=== PATIENT | female | born 1965 | race Caucasian/White ===

== ENCOUNTER 2017-12-08 16:09 | Emergency (ER) | payer OTHER ==
--- NOTE | 2017-12-08 16:33 | PDOC ---
Rapid Medical Evaluation Time Seen by Provider: 12/08/17 16:30 Medical Evaluation: Allergies Allergy/AdvReac Type Severity Reaction Status Date / Time No Known Allergies Allergy Verified 02/18/16 16:38 12/08/17 16:30 I have performed a brief in-person evaluation of this patient. The patient presents with a chief complaint of: pain to R shoulder x 1 month, denies chest pain, sob Pertinent physical exam findings: well appearing, full ROM I have ordered the following: right shoulder xray The patient will proceed to the ED for further evaluation. Discharge Disposition - Diagnosis Right shoulder pain - Referrals - Patient Instructions - Post Discharge Activity
[2017-12-08 16:34] VITALS: BP 124/79; PULSE 82; TEMP 98.3; BMI 26.4
[2017-12-08] MEDS ORDERED: KETOROLAC TROMETHAMINE 30 MG/1 ML VIAL IM ONE (17:14)
[2017-12-08] MEDS ORDERED: KETOROLAC TROMETHAMINE 30 MG/1 ML VIAL ONE (17:19)
--- NOTE | 2017-12-08 17:20 | PDOC ---
History of Present Illness - General Chief Complaint: Pain Stated Complaint: ARM PAIN Time Seen by Provider: 12/08/17 16:30 History Source: Patient Exam Limitations: No Limitations - History of Present Illness Initial Comments: 12/08/17 17:28 52-year-old woman with history of diabetes and bipolar disorder presents emergency Department with atraumatic right shoulder pain for one month. Patient states that with the bed 1 evening approximately one month ago without any pain and woke up the next morning having shoulder pain to the anterior side. Patient denies any trauma. Patient states she has been taking [id number] medications with minimal to no relief of pain. Patient states her pain gets worse when she raises her right arm above the level of the shoulder and when she has inward rotation of her shoulder. Patient denies any fevers, chills, shortness of breath, numbness, tingling or weakness affected extremity. Past History - Past Medical History Allergies/Adverse Reactions: Allergies Allergy/AdvReac Type Severity Reaction Status Date / Time No Known Allergies Allergy Verified 12/08/17 16:30 Home Medications: Ambulatory Orders Atorvastatin Ca [Lipitor] 40 mg PO HS 02/18/16 Divalproex *ER* [Depakote *ER* -] 500 mg PO BID 02/18/16 Glyburide [Diabeta] 5 mg PO DAILY 02/18/16 Insulin Glargine,Hum.rec.anlog [Lantus Solostar PEN -] 70 units SQ ASDIR Metformin HCl [Metformin HCl ER] 500 mg PO BID 02/18/16 Aspirin [ASA -] 81 mg PO DAILY tab.chew 02/19/16 Divalproex *ER* [Depakote *ER* -] 500 mg PO BID tablet.sa 02/19/16 Metoprolol Succinate [Toprol XL -] 25 mg PO DAILY #30 tab.sr.24h 02/19/16 COPD: No Diabetes: Yes Hypercholesterolemia: Yes - Suicide/Smoking/Psychosocial Hx Smoking History: Never smoked Have you smoked in the past 12 months: No Information on smoking cessation initiated: No Hx Alcohol Use: No Drug/Substance Use Hx: No Substance Use Type: None Hx Substance Use Treatment: No Review of Systems - Review of Systems Able to Perform ROS?: Yes Is the patient limited American proficient: No Constitutional: No: Symptoms Reported HEENTM: No: Symptoms Reported Respiratory: No: Symptoms reported Cardiac (ROS): No: Symptoms Reported ABD/GI: No: Symptoms Reported : No: Symptoms Reported Musculoskeletal: Yes: See HPI Integumentary: No: Symptoms Reported Neurological: No: Symptoms reported *Physical Exam - Vital Signs Last Vital Signs Temp Pulse Resp BP Pulse Ox 98.3 F 82 18 124/79 100 12/08/17 16:31 12/08/17 16:31 12/08/17 16:31 12/08/17 16:31 12/08/17 16:31 - Physical Exam General Appearance: Yes: Appropriately Dressed. No: Apparent Distress HEENT: positive: Normal ENT Inspection Neck: positive: Trachea midline, Supple Respiratory/Chest: positive: Lungs Clear, Normal Breath Sounds. negative: Respiratory Distress, Accessory Muscle Use Cardiovascular: positive: Regular Rhythm, Regular Rate. negative: Murmur Gastrointestinal/Abdominal: positive: Normal Bowel Sounds, Soft. negative: Tender Musculoskeletal: positive: Normal Inspection. negative: CVA Tenderness Extremity: positive: Normal Inspection, Normal Range of Motion, Other ( Increased pain with abduction greater than 90 and inward rotation of the shoulder) Integumentary: positive: Normal Color, Dry, Warm Neurologic: positive: Alert, Normal Response Medical Decision Making - Medical Decision Making 12/08/17 17:21 A/P: 52-year-old female without significant past medical history with atraumatic right shoulder pain for one month Active range of motion restricted with adduction greater than 90 and inward rotation of the shoulder No bony tenderness upon palpation Full sensation to all aspects of right upper arm No palpable muscle spasms Terminal Gauger strength 5/5 X-rays perform a rapid medical evaluation as read by me: No fractures or dislocations noted. Acromioclavicular joint is well approximated. X-ray findings discussed with patient and significant other. With. Referral given for Dr. Jung for continued evaluation of shoulder pain is patient may need MRI for further evaluation. Patient verbalizes understanding of discharge instructions. *DC/Admit/Observation/Transfer Diagnosis at time of Disposition: Right shoulder pain Qualifiers: Chronicity: unspecified Qualified Code(s): M25.511 - Pain in right shoulder - Discharge Dispostion Disposition: HOME Condition at time of disposition: Stable Admit: No - Referrals Referrals: Aidee Roe MD [Primary Care Provider] - Richard Jung MD [Staff Physician] - - Patient Instructions Printed Discharge Instructions: Shoulder Tendinopathy Additional Instructions: Take Aleve as needed for pain. Follow manufacturers instructions for appropriate dosage. Apply ice for 20 minutes and removed for at least 20 minutes before reapplying the ice. You've been given the number for an orthopedist. If symptoms do not resolve within the next 7 days call the orthopedist for further evaluation. Return to emergency department for any other concerns. Thank you very much for choosing us to provide your emergent healthcare needs. Print Language: KYRGYZ - Post Discharge Activity
== END 2017-12-08 17:32 | disposition home or self-care (01) ==
LOC: JERFT 16:09
PROC: 3E0233Z Introduction of Anti-inflammatory into Muscle, Percutaneous Approach (ICD-10-PCS; principal; 2017-12-08)
DX: M25.511 Pain in right shoulder (principal); F31.9 Bipolar disorder, unspecified; E11.9 Type 2 diabetes mellitus without complications; E78.00 Pure hypercholesterolemia, unspecified; Z79.4 Long term (current) use of insulin
CPT/HCPCS: 73030-TC-RT-FY; 99281-25

== ENCOUNTER 2018-05-14 11:56 | Emergency (ER) | payer SELFPAY ==
[2018-05-14 12:15] VITALS: BP 124/76; PULSE 87; TEMP 98; BMI 25.7
[2018-05-14] MEDS ORDERED: diphenhydrAMINE HCL 25 MG CAPSULE (FP) PO ONE ×2 (13:25→13:44)
[2018-05-14] MEDS ORDERED: predniSONE 20 MG TABLET (UD) PO ONE (13:25)
--- NOTE | 2018-05-14 13:25 | PDOC ---
Attending Attestation - Resident Resident Name: HarryCash barron - ED Attending Attestation I have performed the following: I have examined & evaluated the patient, The case was reviewed & discussed with the resident, I agree w/resident's findings & plan, Exceptions are as noted - HPI HPI: 05/14/18 13:14 53y F presenting with b/l eye edema. Patient states that she woke up on Monday morning and noticed some eye swelling but did not have any itching, pain, difficult breathing, swelling anywhere else on her face. Patient notes that the swelling had increased on Monday any other symptoms. Do not resolve but today so they came to the ER for evaluation. Denies any new medications, lotions, soap, known ALLERGIES. She denies any shortness of breath difficult swallowing, rashes or itchiness, pain anywhere including chest pain, abdominal pain, eye pain, vision changes, pain with eye movement. - Physicial Exam PE: 05/14/18 13:39 GENERAL: The patient is awake, alert, and fully oriented, Nontoxic - in no acute distress. HEAD: Normocephalic, atraumatic. EYES: periorbital edema, non tender, not tense, non erythemdous, extraocular movements intact, sclera anicteric, conjunctiva clear. ENT: Normal voice, Moist mucous membranes, posterior pharynx patent without SKIN: Warm, Dry, normal turgor, - Medical Decision Making 05/14/18 13:39 DDX: Periorbital edema without signs of infection, no signs of orbital cellulitis Possible ALLERGIC reaction however localized only to the eyes without other signs of ALLERGY Treat the patient with Benadryl, prednisone Will have the patient follow-up with PMD and ALLERGY Return precautions were discussed
--- NOTE | 2018-05-14 13:30 | PDOC ---
History of Present Illness - General Chief Complaint: Allergic Reaction Stated Complaint: EYE PROBLEM, POSSIBLE ALLERGIC REACTION Time Seen by Provider: 05/14/18 13:00 - History of Present Illness Initial Comments: The patient is a 53F w/ a history of T2DM who presents with 3 days of b/l periorbital swelling. She states that the swelling started Monday, got progressively worse Monday, and has stayed since that time. The patient denies any associated symptoms, including pain, fevers, change in vision, difficulty swallowing, or difficulty breathing. She denies any new foods, exposures, creams , lotions, or being bit by anything. She denies every having had this before. She only takes metformin daily. She denies allergies to food or medications. 05/14/18 13:45 Past History - Past Medical History Allergies/Adverse Reactions: Allergies Allergy/AdvReac Type Severity Reaction Status Date / Time No Known Allergies Allergy Verified 05/14/18 12:12 Home Medications: Ambulatory Orders Metformin HCl [Metformin HCl ER] 1,000 mg PO BID 05/14/18 Prednisone [Deltasone] 40 mg PO DAILY 4 Days #8 tablet 05/14/18 COPD: No Diabetes: Yes Hypercholesterolemia: Yes - Surgical History Cholecystectomy: Yes - Immunization History Immunization Up to Date: Yes - Suicide/Smoking/Psychosocial Hx Smoking History: Never smoked Have you smoked in the past 12 months: No Hx Alcohol Use: No Drug/Substance Use Hx: No Substance Use Type: None Hx Substance Use Treatment: No Review of Systems - Review of Systems Able to Perform ROS?: Yes Comments:: GENERAL/CONSTITUTIONAL: No fever or chills. No weakness HEAD, EYES, EARS, NOSE AND THROAT: +eye swelling. No change in vision. No ear pain or discharge. No sore throat CARDIOVASCULAR: No chest pain or shortness of breath RESPIRATORY: No cough, wheezing, or hemoptysis GASTROINTESTINAL: No nausea, vomiting, diarrhea or constipation GENITOURINARY: No dysuria, frequency, or change in urination MUSCULOSKELETAL: No joint or muscle swelling or pain. No neck or back pain SKIN: +periortibal swelling NEUROLOGIC: No headache, vertigo, loss of consciousness, or change in strength/ sensation ENDOCRINE: No increased thirst. No abnormal weight change HEMATOLOGIC/LYMPHATIC: No anemia, easy bleeding, or history of blood clots ALLERGIC/IMMUNOLOGIC: No hives or rash 05/14/18 13:47 *Physical Exam - Vital Signs Last Vital Signs Temp Pulse Resp BP Pulse Ox 98.0 F 87 18 124/76 98 05/14/18 12:00 05/14/18 12:00 05/14/18 12:00 05/14/18 12:00 05/14/18 12:00 - Physical Exam Comments: GENERAL: Awake, alert, and fully oriented, in no acute distress HEAD: No signs of trauma, normocephalic, atraumatic EYES: b/l periorbital edema w/o erythema or TTP; PERRL, EOMI, sclera anicteric, conjunctiva clear ENT: Hearing grossly normal, nares patent, oropharynx clear without exudates. Moist mucosa NECK: Normal ROM, supple LUNGS: No distress, speaks full sentences, clear to auscultation bilaterally HEART:Regular rate and rhythm, normal S1 and S2, no murmurs appreciated, peripheral pulses normal and equal bilaterally ABDOMEN: Soft, nontender, normoactive bowel sounds. No guarding, no rebound EXTREMITIES : Normal inspection, Normal range of motion, no edema. No clubbing or cyanosis NEUROLOGICAL: Cranial nerves II through XII grossly intact. Normal speech, normal gait, no focal sensorimotor deficits SKIN: +periorbital swelling; no rash; 05/14/18 13:33 Medical Decision Making - Medical Decision Making The patient is a 53F w/ a history of T2DM who presents with 3d of periorbital swelling Ddx: angioedema v allergic reaction Patient with no reported exposures No signs of infection No signs of vision loss No difficulty breathing or oropharyngeal swelling Will give 50mg Benadryl PO once and Prednisone 60mg PO once Rx Prednisone 40mg PO daily for 4 days Plan for DC w/ PCP f/u Plan discussed with patient and return precautions given. Patient verbalizes understanding and is in agreement. Dispo: Home 05/14/18 13:48 *DC/Admit/Observation/Transfer Diagnosis at time of Disposition: Periorbital edema - Discharge Dispostion Disposition: HOME Condition at time of disposition: Stable Decision to Admit order: No - Prescriptions Prescriptions: Prednisone [Deltasone] 40 mg PO DAILY 4 Days #8 tablet - Referrals Referrals: Aidee Roe MD [Primary Care Provider] - - Patient Instructions Printed Discharge Instructions: DI for General Allergic Reactions Additional Instructions: You were seen today for periorbital edema (edema around your eyes). You were given benadryl and a steroid (prednisone) while here. You were also sent a script of Prednisone 40mg daily for 4 days to the pharmacy that you specified. Please review the handout provided at discharge. Please follow up with your primary care provider within the next 1-3 days. Return to the Emergency Room if your symptoms worsen, or if you develop swelling in your mouth, of the tongue, or trouble breathing, as well as any new/concerning symptoms. - Post Discharge Activity
[2018-05-14] MEDS ORDERED: predniSONE 20 MG TABLET (UD) ONE (13:44)
== END 2018-05-14 13:50 | disposition home or self-care (01) ==
LOC: JER 11:56
DX: H05.223 Edema of bilateral orbit (principal); E11.9 Type 2 diabetes mellitus without complications; Z79.84 Long term (current) use of oral hypoglycemic drugs; E78.00 Pure hypercholesterolemia, unspecified
CPT/HCPCS: 99281-25

== ENCOUNTER 2018-05-30 13:22 | Inpatient (IN) | payer SELFPAY ==
[2018-05-30] MEDS ORDERED: SODIUM CHLORIDE 1,000 ML IV STA ×2 (15:17→17:07)
[2018-05-30] MEDS ORDERED: CLINDAMYCIN 600MG PREMIX IVPB 600 MG/50 ML BAG IVPB ONE ×2 (15:18→15:46)
--- NOTE | 2018-05-30 16:06 | PDOC ---
History of Present Illness - General Chief Complaint: Wound Stated Complaint: Vaginal Sxs Time Seen by Provider: 05/30/18 13:52 History Source: Patient - History of Present Illness Timing/Duration: reports: other (4 days) Past History - Past Medical History Allergies/Adverse Reactions: Allergies Allergy/AdvReac Type Severity Reaction Status Date / Time No Known Allergies Allergy Verified 05/14/18 12:12 Home Medications: Ambulatory Orders Metformin HCl [Metformin HCl ER] 1,000 mg PO BID 05/14/18 COPD: No Diabetes: Yes Hypercholesterolemia: Yes - Surgical History Cholecystectomy: Yes - Immunization History Immunization Up to Date: Yes - Suicide/Smoking/Psychosocial Hx Smoking History: Unknown if ever smoked Have you smoked in the past 12 months: No Hx Alcohol Use: No Drug/Substance Use Hx: No Substance Use Type: None Hx Substance Use Treatment: No Review of Systems - Review of Systems Constitutional: No: Chills, Fever : No: Dysuria *Physical Exam - Vital Signs Last Vital Signs Temp Pulse Resp BP Pulse Ox 98.3 F 98 H 20 151/87 99 05/30/18 13:26 05/30/18 13:26 05/30/18 13:26 05/30/18 13:26 05/30/18 13:26 - Physical Exam General Appearance: Yes: Appropriately Dressed. No: Apparent Distress HEENT: positive: Normal Voice Neck: positive: Supple Respiratory/Chest: negative: Respiratory Distress Female Pelvic Exam: positive: other (copious amount of thick white discharge observed at intraoitus and along labia minora w/ siginificant, fluctuant, diffuse swelling of L labia majora) Gastrointestinal/Abdominal: positive: Soft. negative: Tender Integumentary: positive: Dry, Warm Neurologic: positive: Fully Oriented, Alert, Normal Mood/Affect ED Treatment Course - LABORATORY CBC & Chemistry Diagram: 05/30/18 15:40 05/30/18 15:40 - Medications Given in the ED: ED Medications Discontinued Medications Generic Name Dose Route Start Last Admin Trade Name Freq PRN Reason Stop Dose Admin Clindamycin Phosphate 600 mg in 50 mls @ 100 mls/hr 05/30/18 15:18 05/30/18 15:59 Cleocin 600 Mg Premix Ivpb - IVPB 05/30/18 15:47 100 mls/hr ONCE ONE Administration Protocol Medical Decision Making - Medical Decision Making 05/30/18 16:48 53-year-old female, history of IDDM, here with pain/swelling to genitalia for 4 days. No trauma. No vaginal discharge, fever or chills. No history of similar episode See exam Complicated labial abscess m/l 2/2 poorly controlled DM -pain control -IV abx -labs -GENERAL STORE MANAGER c/s -admit 05/30/18 17:57 BG of 599, no gap. IVF and insulin in progress. GENERAL STORE MANAGER now at bedside. Wound cx sent. Pt admitted to Obs as d/w hospitalist *DC/Admit/Observation/Transfer Diagnosis at time of Disposition: Abscess of left genital labia, Hyperglycemia - Discharge Dispostion Condition at time of disposition: Fair Decision to Admit order: Yes - Referrals Referrals: Aidee Roe MD [Primary Care Provider] - - Patient Instructions - Post Discharge Activity
[2018-05-30 16:10] LABS: BASO % 1.1 % (0-2.0); EOS % 0.7 % (0-4.5); HEMATOCRIT 37.4 % (32.4-45.2); HEMOGLOBIN 12.5 GM/dL (10.7-15.3); LYMPH % 21.4 % (8-40); MCH 28.8 pg (25.7-33.7); MCHC 33.4 g/dl (32.0-36.0); MEAN CELL VOLUME 86.2 fl (80-96); MEAN PLT VOLUME 10.1 fl (7.5-11.1); MONO % 9.8 % (3.8-10.2); PLATELET COUNT 246 K/MM3 (134-434); RBC 4.34 M/mm3 (3.60-5.2); RDW 12.5 % (11.6-15.6); WHITE BLOOD COUNT 10.1 K/mm3 (4.0-10.0)
[2018-05-30 16:41] LABS: INR 0.97 (0.83-1.09); PROTHROMBIN TIME (PATIENT) 11.5 SEC (9.7-13.0)
[2018-05-30 16:44] LABS: ALBUMIN 3.3 g/dl (3.4-5.0); ALK PHOS 155 U/L (45-117); ANION GAP 10 MMOL/L (8-16); BILIRUBIN,TOTAL 0.2 mg/dL (0.2-1); BLOOD UREA NITROGEN 17 mg/dL (7-18); CALCIUM 9.5 mg/dL (8.5-10.1); CHLORIDE 92 mmol/L (98-107); CO2 27 mmol/L (21-32); CREATININE 0.8 mg/dL (0.55-1.3); POTASSIUM 4.2 mmol/L (3.5-5.1); SGOT/AST 8 U/L (15-37); SGPT/ALT 13 U/L (13-61); SODIUM 129 mmol/L (136-145); TOT PROT 7.5 g/dl (6.4-8.2)
[2018-05-30 16:52] LABS: GLUCOSE,RANDOM 599 mg/dL (74-106)
[2018-05-30] MEDS: INSULIN REGULAR HUMAN 100 UNITS/ML *VIAL IVPUSH ONE ×2 (17:04→17:10)
[2018-05-30] MEDS ORDERED: INSULIN (NOVOLOG) ASPART 100 UNITS/ML 10ML VIAL ONE (17:09)
[2018-05-30] MEDS ORDERED: LIDOCAINE HCL 1%, 10 MG/ML (20ML VIAL) ONE (17:39)
--- NOTE | 2018-05-30 18:14 | CONSULT ---
Consult Consult Specialty:: PROJECT DESIGN ENGINEER Reason for Consultation:: Labial abscess - History of Present Illness Chief Complaint: L labial swelling History of Present Illness: 53yo poorly controlled DM2 here with 4 days of L labial swelling. Very painful. Difficulty walking/sitting. Uses razors. No fevers/chills. Never had this before. No allergies. - History Source History Provided By: Patient - Past Medical History Endocrine: Yes: Diabetes Mellitus - Past Surgical History Past Surgical History: Yes: Cholecystectomy - Alcohol/Substance Use Hx Alcohol Use: No History of Substance Use: reports: None - Smoking History Smoking history: Never smoked Have you smoked in the past 12 months: No - Social History Usual Living Arrangement: With Spouse ADL: Independent Home Medications - Allergies Allergies/Adverse Reactions: Allergies Allergy/AdvReac Type Severity Reaction Status Date / Time No Known Allergies Allergy Verified 05/14/18 12:12 - Home Medications Home Medications: Ambulatory Orders Metformin HCl [Metformin HCl ER] 1,000 mg PO BID 05/14/18 Review of Systems - Review of Systems Gastrointestinal: denies: No Symptoms, Abdominal Pain, Bloating, Constipation, Diarrhea, Dysphagia, Indigestion, Melena, Nausea, Rectal Bleeding, Vomiting, Vomiting Blood, Other Genitourinary: denies: No Symptoms, Burning, Discharge, Dysuria, Flank Pain, Frequency, Hematuria, Incontinence, Lesions, Menses, Pain, Testicular Mass, Testicular Pain, Testicular Swelling, Urgency, Vaginal Bleeding, Other Integumentary: reports: Lesions, Lump Physical Exam Vital Signs: Vital Signs Temperature 98.3 F 05/30/18 13:26 Pulse Rate 98 H 05/30/18 13:26 Respiratory Rate 20 05/30/18 13:26 Blood Pressure 151/87 05/30/18 13:26 O2 Sat by Pulse Oximetry (%) 99 05/30/18 13:26 Constitutional: Yes: Calm (Normal R labia, Swollen and indurated L labia majora. no vesicles. One pustule.) Labs: CBC, BMP 05/30/18 15:40 05/30/18 15:40 Assessment/Plan 53yo here with L labia mess Now s/p bedside I&D with copious draiange Clinda IV given by ER, would continue po course x 7 days Culture taken Hygeine dsicussed Admitted to medicine service; will see in AM again Gloria Hendrickson MD
[2018-05-30 18:59] LABS: URINE APPEARANCE SLCLOUDY; URINE BILIRUBIN NEGATIVE (<2.0 mg/dL); URINE COLOR STRAW; URINE GLUCOSE (UA) 3+ (NEGATIVE); URINE KETONE TRACE (NEGATIVE); URINE LEUK ESTERASE 3+ (NEGATIVE); URINE NITRITE NEGATIVE (NEGATIVE); URINE PROTEIN NEGATIVE (NEGATIVE); URINE UROBILINOGEN NEGATIVE mg/dL (0.2-1.0)
[2018-05-30 19:29] LABS: EPI CELLS RARE /HPF (FEW); URINE MUCUS RARE; YEAST RARE
[2018-05-30] MEDS ORDERED: MIDAZOLAM 100 MG in SODIUM CHLORIDE 100 ML IVPB SCH (20:00)
[2018-05-30] MEDS ORDERED: ENOXAPARIN NA (PORCINE) 40 MG/0.4 ML DISP.SYRIN SQ SCH (20:45)
--- NOTE | 2018-05-30 20:55 | HP ---
CHIEF COMPLAINT: vaginal infection on L labia x5 days PCP: HISTORY OF PRESENT ILLNESS: 53F w/ pmhx of DM, HLD, Depression presents with 5 day history of vaginal pain due to an infection on her L labia. Pt says she has never had this before. She states that she noticed this abscess about 5 days ago after which she was given "Ampicillin 500 mg" by her PCP, but it did not get better. She uses a razor to shave her vaginal area, but denies any cuts or rashes in the region. She denies any history of sexually transmitted diseases. She also reports that she is currently sexually active with her and does not use any protection. Pt admits that she gets frequent UTIs. She denies kumar/d, f/c, n/v, chest pain, sob, abd pain, urinary/bowel symptoms, blood in urine or stool. Of note, she states her maternal grandmother had "vaginal cancer". ER course was notable for: (1) WBC 10.1, T 98.6, Na 129 (Corrected Na 138), Glu 599; U/A showed 3+ LE, 2+ Bl, 3+ LE, 60 WBCs, 39 RBCs (2) I&D done by SIGN LETTERER at bedside with copious drainage, Clindamycin 600 mg IVPB given, IV Insulin 10U, wound cx done (3) Recent Travel: Denies PAST MEDICAL HISTORY: DM HLD Depression PAST SURGICAL HISTORY: C-sections x3 Cholecystectomy Social History: Smoking: Denies Alcohol: Denies Drugs: Denies Family History: Maternal grandmother: vaginal cx Mother: HTN, DM Father: HTN, DM Allergies No Known Allergies Allergy (Verified 05/14/18 12:12) HOME MEDICATIONS: Home Medications Medication Instructions Recorded Metformin HCl [Metformin HCl ER] 1,000 mg PO BID 05/14/18 REVIEW OF SYSTEMS As per HPI PHYSICAL EXAMINATION Vital Signs - 24 hr 05/30/18 05/30/18 13:26 18:51 Temperature 98.3 F 98.6 F Pulse Rate 98 H Pulse Rate [ 97 H Left] Respiratory 20 18 Rate Blood Pressure 151/87 Blood Pressure 155/91 [Left Arm] O2 Sat by Pulse 99 100 Oximetry (%) GENERAL: AAOx3. NAD. Resting comfortably. HEENT: AT/NC. EOMI. CHAR. Moist mucus membranes. NECK: Supple, no LAD/JVD. LUNGS: CTA B/L. No w/r/r noted. Symmetric chest rise. No accessory muscle use. HEART: RRR. Normal S1, S2. No murmurs noted. ABDOMEN: Soft, ND/NT +BS in all 4 Q's. No masses or bruits noted. : Tender L labial abscess, indurated, erythematous. MUSCULOSKELETAL: No pedal edema. 5/5 muscle strength in b/l u/l extremities. NEUROLOGICAL: Normal speech. CN II-XII intact. B/l sensation intact. PSYCHIATRIC: Cooperative. Good eye contact. Appropriate mood and affect. SKIN: Warm, dry, normal turgor, normal capillary refill. CBC, BMP 05/30/18 15:40 05/30/18 15:40 Abnormal Lab Results 05/30/18 05/30/18 05/30/18 15:40 15:40 15:59 WBC 10.1 H Sodium 129 L Chloride 92 L Random Glucose 599 H* AST 8 L Alkaline Phosphatase 155 H Albumin 3.3 L Urine Glucose (UA) Urine Ketones Urine Blood Ur Leukocyte Esterase Acetone, Qual Negative L 05/30/18 18:52 WBC Sodium Chloride Random Glucose AST Alkaline Phosphatase Albumin Urine Glucose (UA) 3+ H Urine Ketones Trace H Urine Blood 2+ H Ur Leukocyte Esterase 3+ H Acetone, Qual ASSESSMENT/PLAN: 53F w/ pmhx of DM, HLD, Depression presents with 5 day history of vaginal pain due to an infection on her L labia. #Left labial abscess; Pt underwent I&D at bedside by SIGN LETTERER. Due to pt failed outpatient antibiotic therapy, there is a concern for MRSA as cause of infection. -Given Clindamycin 660 mg IVPB in ED -Cont with Vancomycin 1 gm IVPB Q12H -Zosyn 3.375 mg IVPB Q8H -wound culture pending -OBGYN to follow in AM -ID consulted ordered -Warm compresses to affected area -Pt counseling on importance of hygiene. #Pseudohyponatremia; Corrected Na is 138. #DM; Uncontrolled as pt's Glu was 599, however pt not in DKA as acetone (-). States she is not currently taking insulin at home. -Hold home meds -Levemir 10U HS -ISS -BGMs -A1c ordered, pending -[facility] outpatient follow up with podiatry and property field adjuster #HLD -Rosuvastatin 20 mg PO HS #Depression -Pt was previously on Depakote, but is no longer on meds for unknown reason. F/ u outpatient with PCP. #DVT Ppx -Heparin 5000U SQ TID #FEN -NS @ 75 -recheck BMP in AM (Na, Glu) -Diabetic diet dispo - admit to obs Visit type - Emergency Visit Emergency Visit: Yes ED Registration Date: 05/30/18 Care time: The patient presented to the Emergency Department on the above date and was hospitalized for further evaluation of their emergent condition. - New Patient This patient is new to me today: Yes Date on this admission: 05/31/18 - Critical Care Critical Care patient: No
[2018-05-30] MEDS ORDERED: VANCOMYCIN 1,000 MG in DEXTROSE 5%-WATER - 250 ML IVPB SCH (23:30)
[2018-05-30] MEDS ORDERED: VANCOMYCIN 1 GRAM (PRE-DOCKED) 1,000 MG/250 ML BAG IVPB ONE (23:45)
[2018-05-30] MEDS ORDERED: SODIUM CHLORIDE 1,000 ML IV SCH (23:45)
--- NOTE | 2018-05-30 23:53 | PN ---
Teaching Attending Note Name of Resident: Autumn Coreas ATTENDING PHYSICIAN STATEMENT I saw and evaluated the patient. Chart, data, imaging reviewed. I reviewed the resident's note and discussed the case with the resident. I agree with the resident's findings and plan as documented. SUBJECTIVE: 53F w/ pmhx of uncontrolled DM, HLD, Depression c/o 5 days of left labial pain , found to have a abscess which was drained in ER. Purulent material was drained and sent for culture. Received IV clindamycin in ER. Denied any other symptoms besides left labial pain. Pt reported taking PO "ampicillin" for 2 days that she had at home with minimal relief. OBJECTIVE: Last Vital Signs Temp Pulse Resp BP Pulse Ox 98.6 F 97 H 18 155/91 100 05/30/18 18:51 05/30/18 18:51 05/30/18 18:51 05/30/18 18:51 05/30/18 18:51 gen- appears comfortable , nontoxic heent- moist oral mucosa neck supple cv -s1+s2+rrr chest clear abdomen - soft Training Analyst- left labia warm, red, tender, left inguinal tender lymph node Abnormal Lab Results 05/30/18 05/30/18 05/30/18 15:40 15:40 15:59 WBC 10.1 H Sodium 129 L Chloride 92 L Random Glucose 599 H* AST 8 L Alkaline Phosphatase 155 H Albumin 3.3 L Urine Glucose (UA) Urine Ketones Urine Blood Ur Leukocyte Esterase Acetone, Qual Negative L 05/30/18 18:52 WBC Sodium Chloride Random Glucose AST Alkaline Phosphatase Albumin Urine Glucose (UA) 3+ H Urine Ketones Trace H Urine Blood 2+ H Ur Leukocyte Esterase 3+ H Acetone, Qual ASSESSMENT AND PLAN: Left labial abscess s/p I,D with culture pending. SHould cover for MRSA. -observation -vancomycin 1g V q12hrs -zosyn -ID consult -obgyn f/u -warm compress to left labia -better hygiene -f/u culture #Hypeglycemia- normal AG, no acetones found -basal insulin + sliding scale -send a1c -lipid panel -statin -ASA #DVT -heparin sc
[2018-05-31] MEDS ORDERED: VANCOMYCIN 1 GRAM (PRE-DOCKED) 1,000 MG/250 ML BAG IVPB SCH (00:15)
[2018-05-31] MEDS ORDERED: VANCOMYCIN 1,000 MG in DEXTROSE 5%-WATER - 250 ML IVPB ONE (00:45)
[2018-05-31] MEDS ORDERED: HEPARIN NA (PORCINE) 5,000 UNITS/ML 1ML VIAL ONE (01:29)
[2018-05-31] MEDS ORDERED: PIPERACILLIN/TAZOB 3.375 GM 3.375 GM/50 ML BAG IVPB ONE ×2 (01:30→08:50)
[2018-05-31] MEDS ORDERED: VANCOMYCIN 1 GRAM (PRE-DOCKED) 1,000 MG/250 ML BAG IVPB ONE (01:30)
[2018-05-31] MEDS: HEPARIN NA (PORCINE) 5,000 UNITS/ML 1ML VIAL SQ SCH ×4 (01:52→21:31)
[2018-05-31] MEDS: PIPERACILLIN/TAZOB 3.375 GM 3.375 GM in DEXTROSE 5%-WATER - 50 ML IVPB SCH ×2 (01:53→08:51)
[2018-05-31] MEDS: ACETAMINOPHEN 325 MG TABLET (FP) PO PRN ×2 (01:53→17:34)
[2018-05-31] MEDS ORDERED: ACETAMINOPHEN 325 MG TABLET (FP) ONE ×2 (01:58→17:35)
[2018-05-31] MEDS ORDERED: CLINDAMYCIN 600MG PREMIX IVPB 600 MG/50 ML BAG IVPB SCH (02:00)
[2018-05-31] MEDS: INSULIN SLIDING SCALE (NOVOLOG) 1 VIAL SQ SCH ×5 (02:56→21:35)
[2018-05-31] MEDS ORDERED: INSULIN (NOVOLOG) ASPART 100 UNITS/ML 10ML VIAL ONE ×2 (02:58→07:42)
[2018-05-31 06:47] LABS: HEMATOCRIT 35.3 % (32.4-45.2); HEMOGLOBIN 11.6 GM/dL (10.7-15.3); MCH 28.2 pg (25.7-33.7); MCHC 32.9 g/dl (32.0-36.0); MEAN CELL VOLUME 85.6 fl (80-96); MEAN PLT VOLUME 9.5 fl (7.5-11.1); PLATELET COUNT 212 K/MM3 (134-434); RBC 4.12 M/mm3 (3.60-5.2); RDW 12.3 % (11.6-15.6); WHITE BLOOD COUNT 9.1 K/mm3 (4.0-10.0)
[2018-05-31 07:09] LABS: CHOLESTEROL 176 mg/dL (50-200); HDL CHOLESTEROL 26 mg/dL (40-60); TRIGLYCERIDES 169 mg/dL (0-150)
[2018-05-31 07:19] LABS: ANION GAP 8 MMOL/L (8-16); BLOOD UREA NITROGEN 8 mg/dL (7-18); CALCIUM 8.4 mg/dL (8.5-10.1); CHLORIDE 100 mmol/L (98-107); CO2 28 mmol/L (21-32); CREATININE 0.7 mg/dL (0.55-1.3); POTASSIUM 3.6 mmol/L (3.5-5.1); SODIUM 136 mmol/L (136-145)
[2018-05-31 07:29] LABS: GLUCOSE,RANDOM 387 mg/dL (74-106)
--- NOTE | 2018-05-31 08:10 | PN ---
Progress Note, Physician Chief Complaint: Labial pain, swelling History of Present Illness: 53yo poorly controlled DM2 here with 4 days of L labial swelling. Very painful. Difficulty walking/sitting. Uses razors. No fevers/chills. Never had this before. Pain improved after I&D. Still with some small drainage. No fevers/chills. - Current Medication List Current Medications: Active Medications Acetaminophen (Tylenol -) 650 mg PO Q6H PRN PRN Reason: PAIN LEVEL 6-10 Last Admin: 05/31/18 01:53 Dose: 650 mg Heparin Sodium (Porcine) (Heparin -) 5,000 unit SQ TID NEEL Last Admin: 05/31/18 06:03 Dose: Not Given Piperacillin Sod/Tazobactam (Sod 3.375 gm/ Dextrose) 50 mls @ 100 mls/hr IVPB Q8H-IV NEEL; Protocol Piperacillin Sod/Tazobactam (Sod 3.375 gm/ Dextrose) 50 mls @ 100 mls/hr IVPB Q8H ENEL; Protocol Stop: 05/31/18 08:14 Last Admin: 05/31/18 01:53 Dose: 100 mls/hr Sodium Chloride (Normal Saline -) 1,000 mls @ 75 mls/hr IV ASDIR NEEL Last Admin: 05/31/18 01:53 Dose: 75 mls/hr Vancomycin HCl (Vancomycin (Pre-Docked)) 1,000 mg in 250 mls @ 200 mls/hr IVPB Q12H NEEL; Protocol Stop: 06/01/18 00:14 Insulin Aspart (Novolog) 10 units SQ NOW ONE Stop: 05/31/18 18:08 Insulin Aspart (Novolog Vial Sliding Scale -) 1 vial SQ ACHS NEEL; Protocol Last Admin: 05/31/18 07:40 Dose: 10 unit - Objective Vital Signs: Vital Signs Temperature 100.4 F H 05/31/18 02:21 Pulse Rate 95 H 05/31/18 02:21 Respiratory Rate 17 05/31/18 02:21 Blood Pressure 155/91 05/31/18 02:21 O2 Sat by Pulse Oximetry (%) 99 05/31/18 02:21 Integumentary: Yes: Erythema, Incision, Other (L labia with induration and small amount of purulent drainage from puncture area of I&D. Appropriately tender to touch. Slight warmth. No active bleeding.Has gross vulvar/vaginal candidasis) Labs: CBC, BMP 05/31/18 06:30 05/31/18 06:30 INR, PTT INR 0.97 (0.83-1.09) 05/30/18 15:40 Problem List - Problems (1) Abscess of left genital labia Code(s): N76.4 - ABSCESS OF VULVA Assessment/Plan 53yo F with L labial abscess, now s/p I&D Pt more comfortable s/p I&D, area appears markedly smaller since drainage, slight improvement in induration. No signs of spread. Appreciate medicine input Started on IV-Vanc/Zosyn by medicine team, although Clinda covers MRSA as well. She should go home on Clinda po course (300mg po TID x 7 days). An ID consult was placed by the primary team, I suspect low suspicion for MRSA but again, Clinda or Bactrim covers this as well Also has vaginal/vulvar yeast, recommend Fluconazole 150mg po today and then repeat dose in 7 days. Discussed poor glycemic control and shaving as likely inciting factors; advised no further shaving Should follow up in office for repeat exam and further care next week Anticipate d/c to home today pending improvement in glycemic control Gloria Hendrickson MD [address]
--- NOTE | 2018-05-31 09:21 | EKG ---
Test Reason : Blood Pressure : / mmHG Vent. Rate : 091 BPM Atrial Rate : 091 BPM P-R Int : 136 ms QRS Dur : 074 ms QT Int : 378 ms P-R-T Axes : 038 -17 031 degrees QTc Int : 464 ms NORMAL SINUS RHYTHM LOW VOLTAGE QRS BORDERLINE ECG WHEN COMPARED WITH ECG OF 19-FEB-2016 09:52, NO SIGNIFICANT CHANGE WAS FOUND Confirmed by JACKELYN MARKHAM MD ([id number]) on 05/31/2018 9:21:16 AM Referred By: Confirmed By:JACKELYN MARKHAM MD
[2018-05-31] MEDS ORDERED: INSULIN (LEVEMIR) 100 UNITS/ML UNITS SQ SCH (10:00)
[2018-05-31] MEDS ORDERED: INSULIN (LEVEMIR) 100 UNITS/ML UNITS SQ ONE ×2 (11:23→21:23)
--- NOTE | 2018-05-31 11:41 | PN ---
Physical Exam: SUBJECTIVE: Patient seen and examined; no new complaints. Hyperglycemia persists throughout the night; covering with SSI and adjusting basal. Her A1c is grossly uncontrolled and she will need her regimine fixed prior to DC. No DKA. The labial abscess area has improved. Will discuss the case with [employer] and try to dispo. OBJECTIVE: Vital Signs Period Temp Pulse Resp BP Sys/Jeronimo Pulse Ox Last 24 Hr 98.3 F-100.4 F 87-98 17-20 103-155/62-91 99-100 GENERAL: The patient is awake, alert, and fully oriented, in no acute distress. HEAD: Normal with no signs of trauma. EYES: PERRL, extraocular movements intact, sclera anicteric, conjunctiva clear. No ptosis. ENT: Ears normal, nares patent, oropharynx clear without exudates, moist mucous membranes. NECK: Trachea midline, full range of motion, supple. LUNGS: Breath sounds equal, clear to auscultation bilaterally, no wheezes, no crackles, no accessory muscle use. HEART: Regular rate and rhythm, S1, S2 without murmur, rub or gallop. ABDOMEN: Soft, nontender, nondistended, normoactive bowel sounds, no guarding, no rebound, no hepatosplenomegaly, no masses. : L labia with some residual drainage from site and redness; mild to moderately painful to palpation EXTREMITIES: 2+ pulses, warm, well-perfused, no edema. NEUROLOGICAL: Cranial nerves II through XII grossly intact. Normal speech, gait not observed. PSYCH: Normal mood, normal affect. Laboratory Results - last 24 hr 05/30/18 05/30/18 05/30/18 15:40 15:40 15:40 WBC 10.1 H RBC 4.34 Hgb 12.5 Hct 37.4 MCV 86.2 MCH 28.8 MCHC 33.4 RDW 12.5 D Plt Count 246 D MPV 10.1 Absolute Neuts (auto) 6.8 Neutrophils % 67.0 D Lymphocytes % 21.4 D Monocytes % 9.8 Eosinophils % 0.7 D Basophils % 1.1 Nucleated RBC % 0 PT with INR 11.50 INR 0.97 Sodium 129 L Potassium 4.2 Chloride 92 L Carbon Dioxide 27 Anion Gap 10 BUN 17 Creatinine 0.8 Creat Clearance w eGFR > 60 Plasma Glucose POC Glucometer Random Glucose 599 H* Hemoglobin A1c % Calcium 9.5 Total Bilirubin 0.2 AST 8 L ALT 13 Alkaline Phosphatase 155 H Total Protein 7.5 Albumin 3.3 L Triglycerides Cholesterol Total LDL Cholesterol HDL Cholesterol Urine Color Urine Appearance Urine pH Ur Specific [place] Urine Protein Urine Glucose (UA) Urine Ketones Urine Blood Urine Nitrite Urine Bilirubin Urine Urobilinogen Ur Leukocyte Esterase Urine WBC (Auto) Urine RBC (Auto) Ur Epithelial Cells Urine Mucus Urine Yeast Acetone, Qual HIV 1&2 Antibody Screen HIV P24 Antigen Blood Type Antibody Screen 05/30/18 05/30/18 05/30/18 15:40 15:59 16:00 WBC RBC Hgb Hct MCV MCH MCHC RDW Plt Count MPV Absolute Neuts (auto) Neutrophils % Lymphocytes % Monocytes % Eosinophils % Basophils % Nucleated RBC % PT with INR INR Sodium Potassium Chloride Carbon Dioxide Anion Gap BUN Creatinine Creat Clearance w eGFR Plasma Glucose POC Glucometer Random Glucose Hemoglobin A1c % 13.3 H Calcium Total Bilirubin AST ALT Alkaline Phosphatase Total Protein Albumin Triglycerides Cholesterol Total LDL Cholesterol HDL Cholesterol Urine Color Urine Appearance Urine pH Ur Specific [place] Urine Protein Urine Glucose (UA) Urine Ketones Urine Blood Urine Nitrite Urine Bilirubin Urine Urobilinogen Ur Leukocyte Esterase Urine WBC (Auto) Urine RBC (Auto) Ur Epithelial Cells Urine Mucus Urine Yeast Acetone, Qual Negative L HIV 1&2 Antibody Screen HIV P24 Antigen Blood Type A POSITIVE Antibody Screen Negative 05/30/18 05/30/18 05/30/18 16:00 18:37 18:52 WBC RBC Hgb Hct MCV MCH MCHC RDW Plt Count MPV Absolute Neuts (auto) Neutrophils % Lymphocytes % Monocytes % Eosinophils % Basophils % Nucleated RBC % PT with INR INR Sodium Potassium Chloride Carbon Dioxide Anion Gap BUN Creatinine Creat Clearance w eGFR Plasma Glucose POC Glucometer [phone] Random Glucose Hemoglobin A1c % Calcium Total Bilirubin AST ALT Alkaline Phosphatase Total Protein Albumin Triglycerides Cholesterol Total LDL Cholesterol HDL Cholesterol Urine Color Straw Urine Appearance Slcloudy Urine pH 5.0 Ur Specific [place] 1.028 Urine Protein Negative Urine Glucose (UA) 3+ H Urine Ketones Trace H Urine Blood 2+ H Urine Nitrite Negative Urine Bilirubin Negative Urine Urobilinogen Negative Ur Leukocyte Esterase 3+ H Urine WBC (Auto) 60 Urine RBC (Auto) 39 Ur Epithelial Cells Rare Urine Mucus Rare Urine Yeast Rare Acetone, Qual HIV 1&2 Antibody Screen Negative HIV P24 Antigen Negative Blood Type Antibody Screen 05/31/18 05/31/18 05/31/18 02:08 02:11 06:30 WBC 9.1 RBC 4.12 Hgb 11.6 Hct 35.3 MCV 85.6 MCH 28.2 MCHC 32.9 RDW 12.3 Plt Count 212 MPV 9.5 Absolute Neuts (auto) Neutrophils % Lymphocytes % Monocytes % Eosinophils % Basophils % Nucleated RBC % PT with INR INR Sodium Potassium Chloride Carbon Dioxide Anion Gap BUN Creatinine Creat Clearance w eGFR Plasma Glucose 459 H* POC Glucometer > 400 Random Glucose Hemoglobin A1c % Calcium Total Bilirubin AST ALT Alkaline Phosphatase Total Protein Albumin Triglycerides Cholesterol Total LDL Cholesterol HDL Cholesterol Urine Color Urine Appearance Urine pH Ur Specific [place] Urine Protein Urine Glucose (UA) Urine Ketones Urine Blood Urine Nitrite Urine Bilirubin Urine Urobilinogen Ur Leukocyte Esterase Urine WBC (Auto) Urine RBC (Auto) Ur Epithelial Cells Urine Mucus Urine Yeast Acetone, Qual HIV 1&2 Antibody Screen HIV P24 Antigen Blood Type Antibody Screen 05/31/18 05/31/18 06:30 06:30 WBC RBC Hgb Hct MCV MCH MCHC RDW Plt Count MPV Absolute Neuts (auto) Neutrophils % Lymphocytes % Monocytes % Eosinophils % Basophils % Nucleated RBC % PT with INR INR Sodium 136 Potassium 3.6 Chloride 100 Carbon Dioxide 28 Anion Gap 8 BUN 8 Creatinine 0.7 Creat Clearance w eGFR > 60 Plasma Glucose POC Glucometer Random Glucose 387 H* Hemoglobin A1c % Calcium 8.4 L Total Bilirubin AST ALT Alkaline Phosphatase Total Protein Albumin Triglycerides 169 H Cholesterol 176 Total LDL Cholesterol 128 H HDL Cholesterol 26 L Urine Color Urine Appearance Urine pH Ur Specific [place] Urine Protein Urine Glucose (UA) Urine Ketones Urine Blood Urine Nitrite Urine Bilirubin Urine Urobilinogen Ur Leukocyte Esterase Urine WBC (Auto) Urine RBC (Auto) Ur Epithelial Cells Urine Mucus Urine Yeast Acetone, Qual HIV 1&2 Antibody Screen HIV P24 Antigen Blood Type Antibody Screen Active Medications Generic Name Dose Route Start Last Admin Trade Name Freq PRN Reason Stop Dose Admin Acetaminophen 650 mg 05/30/18 23:40 05/31/18 01:53 Tylenol - PO 650 mg Q6H PRN Administration PAIN LEVEL 6-10 Heparin Sodium (Porcine) 5,000 unit 05/30/18 23:45 05/31/18 06:03 Heparin - SQ Not Given TID NEEL Piperacillin Sod/Tazobactam 50 mls @ 100 mls/hr 05/30/18 23:45 Sod 3.375 gm/ Dextrose IVPB Q8H-IV NEEL Protocol Sodium Chloride 1,000 mls @ 75 mls/hr 05/30/18 23:45 05/31/18 01:53 Normal Saline - IV 75 mls/hr ASDIR NEEL Administration Vancomycin HCl 1,000 mg in 250 mls @ 200 mls/hr 05/31/18 00:15 Vancomycin (Pre-Docked) IVPB 06/01/18 00:14 Q12H NEEL Protocol Insulin Aspart 10 units 05/31/18 18:07 Novolog SQ 05/31/18 18:08 NOW ONE Insulin Aspart 1 vial 05/30/18 22:00 05/31/18 07:40 Novolog Vial Sliding Scale - SQ 10 unit ACHS NEEL Administration Protocol Insulin Detemir 5 units 05/31/18 10:00 Levemir Vial SQ BID NEEL Rosuvastatin Calcium 20 mg 05/31/18 22:00 Crestor - PO HS NEEL ASSESSMENT/PLAN: 1) Labial Abscess 2) DM2 with Hyperglycemia, uncontrolled 3) Yeast Infection 4) Hyponatremia 5) Depression 6) Obesity Overall the patient is doing well; symptomatically improved in terms of her labial abscess. Changing abx to Clindamycin; I see ID has been consulted so will ultimately defer to her, but community acquired MRSA likely covered by this. Will discuss with ID and OBGYN. Her glucose is also very, very poorly controlled. A1c is 13%. Placing on long acting and monitoring for improvement. Will need to be discharged home on insulin, PO meds, etc. Counseling for obsesity. I think her infection got out of control due to uncontrolled hyperglycemia. Full Code 40 minutes spent with patient. Visit type - Emergency Visit Emergency Visit: No - New Patient This patient is new to me today: Yes Date on this admission: 05/31/18 - Critical Care Critical Care patient: No
--- NOTE | 2018-05-31 12:37 | DS ---
Physical Exam: SUBJECTIVE: Patient seen and examined OBJECTIVE: Vital Signs Period Temp Pulse Resp BP Sys/Jeronimo Pulse Ox Last 24 Hr 98.3 F-100.4 F 87-98 17-20 103-155/62-91 99-100 PHYSICAL EXAM GENERAL: The patient is awake, alert, and fully oriented, in no acute distress. HEAD: Normal with no signs of trauma. EYES: PERRL, extraocular movements intact, sclera anicteric, conjunctiva clear. ENT: Ears normal, nares patent, oropharynx clear without exudates, moist mucous membranes. NECK: Trachea midline, full range of motion, supple. LUNGS: Breath sounds equal, clear to auscultation bilaterally, no wheezes, no crackles, no accessory muscle use. HEART: Regular rate and rhythm, S1, S2 without murmur, rub or gallop. ABDOMEN: Soft, nontender, nondistended, normoactive bowel sounds, no guarding, no rebound, no hepatosplenomegaly, no masses. EXTREMITIES: 2+ pulses, warm, well-perfused, no edema. NEUROLOGICAL: Cranial nerves II through XII grossly intact. Normal speech, gait not observed. PSYCH: Normal mood, normal affect. SKIN: Warm, dry, normal turgor, no rashes or lesions noted. LABS Laboratory Results - last 24 hr 05/30/18 05/30/18 05/30/18 15:40 15:40 15:40 WBC 10.1 H RBC 4.34 Hgb 12.5 Hct 37.4 MCV 86.2 MCH 28.8 MCHC 33.4 RDW 12.5 D Plt Count 246 D MPV 10.1 Absolute Neuts (auto) 6.8 Neutrophils % 67.0 D Lymphocytes % 21.4 D Monocytes % 9.8 Eosinophils % 0.7 D Basophils % 1.1 Nucleated RBC % 0 PT with INR 11.50 INR 0.97 Sodium 129 L Potassium 4.2 Chloride 92 L Carbon Dioxide 27 Anion Gap 10 BUN 17 Creatinine 0.8 Creat Clearance w eGFR > 60 Plasma Glucose POC Glucometer Random Glucose 599 H* Hemoglobin A1c % Calcium 9.5 Total Bilirubin 0.2 AST 8 L ALT 13 Alkaline Phosphatase 155 H Total Protein 7.5 Albumin 3.3 L Triglycerides Cholesterol Total LDL Cholesterol HDL Cholesterol Urine Color Urine Appearance Urine pH Ur Specific [place] Urine Protein Urine Glucose (UA) Urine Ketones Urine Blood Urine Nitrite Urine Bilirubin Urine Urobilinogen Ur Leukocyte Esterase Urine WBC (Auto) Urine RBC (Auto) Ur Epithelial Cells Urine Mucus Urine Yeast Acetone, Qual HIV 1&2 Antibody Screen HIV P24 Antigen Blood Type Antibody Screen 05/30/18 05/30/18 05/30/18 15:40 15:59 16:00 WBC RBC Hgb Hct MCV MCH MCHC RDW Plt Count MPV Absolute Neuts (auto) Neutrophils % Lymphocytes % Monocytes % Eosinophils % Basophils % Nucleated RBC % PT with INR INR Sodium Potassium Chloride Carbon Dioxide Anion Gap BUN Creatinine Creat Clearance w eGFR Plasma Glucose POC Glucometer Random Glucose Hemoglobin A1c % 13.3 H Calcium Total Bilirubin AST ALT Alkaline Phosphatase Total Protein Albumin Triglycerides Cholesterol Total LDL Cholesterol HDL Cholesterol Urine Color Urine Appearance Urine pH Ur Specific [place] Urine Protein Urine Glucose (UA) Urine Ketones Urine Blood Urine Nitrite Urine Bilirubin Urine Urobilinogen Ur Leukocyte Esterase Urine WBC (Auto) Urine RBC (Auto) Ur Epithelial Cells Urine Mucus Urine Yeast Acetone, Qual Negative L HIV 1&2 Antibody Screen HIV P24 Antigen Blood Type A POSITIVE Antibody Screen Negative 05/30/18 05/30/18 05/30/18 16:00 18:37 18:52 WBC RBC Hgb Hct MCV MCH MCHC RDW Plt Count MPV Absolute Neuts (auto) Neutrophils % Lymphocytes % Monocytes % Eosinophils % Basophils % Nucleated RBC % PT with INR INR Sodium Potassium Chloride Carbon Dioxide Anion Gap BUN Creatinine Creat Clearance w eGFR Plasma Glucose POC Glucometer [phone] Random Glucose Hemoglobin A1c % Calcium Total Bilirubin AST ALT Alkaline Phosphatase Total Protein Albumin Triglycerides Cholesterol Total LDL Cholesterol HDL Cholesterol Urine Color Straw Urine Appearance Slcloudy Urine pH 5.0 Ur Specific [place] 1.028 Urine Protein Negative Urine Glucose (UA) 3+ H Urine Ketones Trace H Urine Blood 2+ H Urine Nitrite Negative Urine Bilirubin Negative Urine Urobilinogen Negative Ur Leukocyte Esterase 3+ H Urine WBC (Auto) 60 Urine RBC (Auto) 39 Ur Epithelial Cells Rare Urine Mucus Rare Urine Yeast Rare Acetone, Qual HIV 1&2 Antibody Screen Negative HIV P24 Antigen Negative Blood Type Antibody Screen 05/31/18 05/31/18 05/31/18 02:08 02:11 06:30 WBC 9.1 RBC 4.12 Hgb 11.6 Hct 35.3 MCV 85.6 MCH 28.2 MCHC 32.9 RDW 12.3 Plt Count 212 MPV 9.5 Absolute Neuts (auto) Neutrophils % Lymphocytes % Monocytes % Eosinophils % Basophils % Nucleated RBC % PT with INR INR Sodium Potassium Chloride Carbon Dioxide Anion Gap BUN Creatinine Creat Clearance w eGFR Plasma Glucose 459 H* POC Glucometer > 400 Random Glucose Hemoglobin A1c % Calcium Total Bilirubin AST ALT Alkaline Phosphatase Total Protein Albumin Triglycerides Cholesterol Total LDL Cholesterol HDL Cholesterol Urine Color Urine Appearance Urine pH Ur Specific [place] Urine Protein Urine Glucose (UA) Urine Ketones Urine Blood Urine Nitrite Urine Bilirubin Urine Urobilinogen Ur Leukocyte Esterase Urine WBC (Auto) Urine RBC (Auto) Ur Epithelial Cells Urine Mucus Urine Yeast Acetone, Qual HIV 1&2 Antibody Screen HIV P24 Antigen Blood Type Antibody Screen 05/31/18 05/31/18 05/31/18 06:30 06:30 07:39 WBC RBC Hgb Hct MCV MCH MCHC RDW Plt Count MPV Absolute Neuts (auto) Neutrophils % Lymphocytes % Monocytes % Eosinophils % Basophils % Nucleated RBC % PT with INR INR Sodium 136 Potassium 3.6 Chloride 100 Carbon Dioxide 28 Anion Gap 8 BUN 8 Creatinine 0.7 Creat Clearance w eGFR > 60 Plasma Glucose POC Glucometer [phone] Random Glucose 387 H* Hemoglobin A1c % Calcium 8.4 L Total Bilirubin AST ALT Alkaline Phosphatase Total Protein Albumin Triglycerides 169 H Cholesterol 176 Total LDL Cholesterol 128 H HDL Cholesterol 26 L Urine Color Urine Appearance Urine pH Ur Specific [place] Urine Protein Urine Glucose (UA) Urine Ketones Urine Blood Urine Nitrite Urine Bilirubin Urine Urobilinogen Ur Leukocyte Esterase Urine WBC (Auto) Urine RBC (Auto) Ur Epithelial Cells Urine Mucus Urine Yeast Acetone, Qual HIV 1&2 Antibody Screen HIV P24 Antigen Blood Type Antibody Screen HOSPITAL COURSE: Date of Admission:05/30/18 Date of Discharge: 05/31/18 Minutes to complete discharge: 45 Discharge Summary Reason For Visit: ABCESS OF LEFT GENITAL LABIA/HPYERGLYCEMIA Current Active Problems Abscess of left genital labia (Acute) Hyperglycemia (Acute) Procedures: Principal: Bedside I and D of L-labial abscess Hospital Course: Patient was admitted to the hospital for L-labial abscess. She is hemodynamically stable and afebrile without a WBC count incease the day of DC. She had a bedside I and D done of the abscess in the ER. I spoke with OBGYN regarding the abscess and they said that these are commonly managed with PO clindamycin x7 days. Dr. Hendrickson felt that this abscess, too, would be easily managed by PO abx as an outpatient. She was initially boradly covered but will be DC on 300 q6h PO clinda. For her DM, her glucose is grossly uncontrolled. Only on metformin. A1c is 13. No DKA, etc. She Was given insulin and started her on SSI when here. I started her on 5 levemir BID and asked nursing to do teaching. She will need to FU with PCP 3-5 days for further insulin teaching. I have given her Rx for glucometer and strips. 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 Counseling provided. She has reached maximum benefit of inpatient stay. Condition: Fair - Instructions Diet, Activity, Other Instructions: Diet: Diabetic diet; please eliminate added sugars, check AC+HS glucose, and followup with PCP Activity: As tolerated Followup: -PCP 2-5 days -[employer]ICE INSPECTOR 1 week Referrals: Aidee Roe MD [Non Staff, Medical] - (3-5 days for followup of labial abscess) Gloria Hendrickson MD [Staff Physician] - 1 Week (For followu of labial abscess) Disposition: HOME - Home Medications Comprehensive Discharge Medication List: Ambulatory Orders Metformin HCl [Metformin HCl ER] 1,000 mg PO BID 05/14/18 Clindamycin [Cleocin -] 300 mg PO Q6HPO #28 capsule 05/31/18 Insulin (Levemir) [Levemir Vial] 5 units SQ BID #1 vial 05/31/18 Miscellaneous Medical Supply [Glucometer Device] 1 each AD ASDIR #1 kit Miscellaneous Medical Supply [Glucometer Test Strips #100] 1 each AD ASDIR #1 box 05/31/18 Rosuvastatin [Crestor -] 20 mg PO HS 30 Days #30 tablet 05/31/18 This patient is new to me today: Yes Date on this admission: 05/31/18 Emergency Visit: No Critical Care patient: No - Discharge Referral Referred to [facility] No
[2018-05-31] MEDS ORDERED: INSULIN REGULAR HUMAN 100 UNITS/ML *VIAL IVPUSH ONE ×3 (12:55→17:00)
[2018-05-31] MEDS ORDERED: CLINDAMYCIN 600MG PREMIX IVPB 600 MG/50 ML BAG IVPB ONE (13:21)
[2018-05-31] MEDS: CLINDAMYCIN 600MG PREMIX IVPB 600 MG/50 ML BAG IVPB SCH ×2 (13:23→18:16)
[2018-05-31] MEDS ORDERED: INSULIN REGULAR HUMAN 100 UNITS/ML *VIAL ONE ×2 (16:59→17:01)
[2018-05-31] MEDS ORDERED: Insulin (LOG) Aspart 100 UNITS/ML VIAL IV ONE (17:18)
[2018-05-31] MEDS ORDERED: INSULIN (NOVOLOG) ASPART 100 UNITS/ML 10ML VIAL NR ONE (17:29)
[2018-05-31] MEDS ORDERED: Insulin (LOG) Aspart 100 UNITS/ML VIAL SQ ONE (18:07)
[2018-05-31] MEDS: INSULIN (LEVEMIR) 100 UNITS/ML UNITS SQ SCH (21:34)
[2018-05-31] MEDS: ROSUVASTATIN CA 20 MG TABLET (FP) PO SCH (23:14)
[2018-06-01] MEDS: CLINDAMYCIN 600MG PREMIX IVPB 600 MG/50 ML BAG IVPB SCH ×3 (01:14→17:14)
[2018-06-01 02:31] VITALS: BMI 26.2
[2018-06-01] MEDS: HEPARIN NA (PORCINE) 5,000 UNITS/ML 1ML VIAL SQ SCH ×3 (06:23→21:11)
[2018-06-01] MEDS: INSULIN (LEVEMIR) 100 UNITS/ML UNITS SQ SCH ×2 (06:24→21:11)
[2018-06-01] MEDS: ACETAMINOPHEN 325 MG TABLET (FP) PO PRN ×2 (06:25→20:43)
[2018-06-01] MEDS: INSULIN SLIDING SCALE (NOVOLOG) 1 VIAL SQ SCH ×4 (06:25→21:11)
[2018-06-01] MEDS ORDERED: INSULIN (NOVOLOG) ASPART 100 UNITS/ML 10ML VIAL ONE ×2 (06:55→17:16)
[2018-06-01] MEDS ORDERED: INSULIN (LEVEMIR) 100 UNITS/ML UNITS SQ ONE (06:56)
[2018-06-01 07:50] LABS: HEMATOCRIT 35.4 % (32.4-45.2); HEMOGLOBIN 11.5 GM/dL (10.7-15.3); MCHC 32.6 g/dl (32.0-36.0); MEAN PLT VOLUME 9.8 fl (7.5-11.1); PLATELET COUNT 225 K/MM3 (134-434); RBC 4.12 M/mm3 (3.60-5.2); RDW 12.5 % (11.6-15.6); WHITE BLOOD COUNT 7.8 K/mm3 (4.0-10.0)
[2018-06-01] MEDS: PIPERACILLIN/TAZOB 3.375 GM 3.375 GM in DEXTROSE 5%-WATER - 50 ML IVPB SCH ×2 (08:29→08:31)
[2018-06-01 08:44] LABS: ANION GAP 9 MMOL/L (8-16); BLOOD UREA NITROGEN 13 mg/dL (7-18); CALCIUM 8.8 mg/dL (8.5-10.1); CHLORIDE 99 mmol/L (98-107); CO2 28 mmol/L (21-32); CREATININE 0.6 mg/dL (0.55-1.3); GLUCOSE,RANDOM 297 mg/dL (74-106); POTASSIUM 3.7 mmol/L (3.5-5.1); SODIUM 136 mmol/L (136-145)
--- NOTE | 2018-06-01 10:48 | HOSP ---
Physical Examination Vital Signs: Vital Signs Temperature 98.8 F 06/01/18 05:00 Pulse Rate 18 L 06/01/18 05:00 Respiratory Rate 18 06/01/18 04:00 Blood Pressure 123/69 06/01/18 05:00 O2 Sat by Pulse Oximetry (%) 99 06/01/18 04:00 Labs: CBC, BMP 06/01/18 06:00 06/01/18 06:00 Hospitalist Encounter Assessment: Laboratory Results - last 24 hr 05/31/18 05/31/18 05/31/18 02:08 07:39 12:43 WBC RBC Hgb Hct MCV MCH MCHC RDW Plt Count MPV Sodium Potassium Chloride Carbon Dioxide Anion Gap BUN Creatinine Creat Clearance w eGFR POC Glucometer > [phone] > 400 Random Glucose Calcium 05/31/18 05/31/18 05/31/18 13:00 14:44 16:40 WBC RBC Hgb Hct MCV MCH MCHC RDW Plt Count MPV Sodium Potassium Chloride Carbon Dioxide Anion Gap BUN Creatinine Creat Clearance w eGFR POC Glucometer > 400 Random Glucose 449 H* 378 H* Calcium 05/31/18 05/31/18 06/01/18 18:19 20:55 06:00 WBC 7.8 RBC 4.12 Hgb 11.5 Hct 35.4 MCV 86.0 MCH 28.0 MCHC 32.6 RDW 12.5 Plt Count 225 MPV 9.8 Sodium Potassium Chloride Carbon Dioxide Anion Gap BUN Creatinine Creat Clearance w eGFR POC Glucometer [phone] Random Glucose Calcium 06/01/18 06:00 WBC RBC Hgb Hct MCV MCH MCHC RDW Plt Count MPV Sodium 136 Potassium 3.7 Chloride 99 Carbon Dioxide 28 Anion Gap 9 BUN 13 Creatinine 0.6 Creat Clearance w eGFR > 60 POC Glucometer Random Glucose 297 H Calcium 8.8 Recommendations/Interventions: Ambulatory Orders Metformin HCl [Metformin HCl ER] 1,000 mg PO BID 05/14/18 Miscellaneous Medical Supply [Glucometer Device] 1 each AD ASDIR #1 kit Miscellaneous Medical Supply [Glucometer Test Strips #100] 1 each AD ASDIR #1 box 05/31/18 Rosuvastatin [Crestor -] 20 mg PO HS 30 Days #30 tablet 05/31/18 Alcohol Antiseptic Pads [Alcohol Prep Pads] 1 each TP ASDIR #1 box 06/01/18 Clindamycin [Cleocin -] 300 mg PO QID 7 Days #28 capsule 06/01/18 Insulin (Levemir) [Levemir Vial] 10 units SQ BID #10 ml 06/01/18 Syringe with Needle, 1 ml [Easy Touch] 1 each MC BID #60 disp.syrin 06/01/18
--- NOTE | 2018-06-01 20:16 | PN ---
Physical Exam: SUBJECTIVE: Patient seen and examined. She has no complaints. She was not discharged yesterday because glucose was > 400. Levemir was increased. OBJECTIVE: Vital Signs Period Temp Pulse Resp BP Sys/Jeronimo Pulse Ox Last 24 Hr 97.8 F-99 F 18-87 16-18 108-123/65-74 99-100 GENERAL: The patient is awake, alert, and fully oriented, in no acute distress. LUNGS: Breath sounds equal, clear to auscultation bilaterally, no wheezes, no crackles, no accessory muscle use. HEART: Regular rate and rhythm, S1, S2 without murmur, rub or gallop. ABDOMEN: Soft, nontender, nondistended, normoactive bowel sounds, no guarding, no rebound, no hepatosplenomegaly, no masses. EXTREMITIES: 2+ pulses, warm, well-perfused, no edema. Laboratory Results - last 24 hr 05/31/18 06/01/18 06/01/18 20:55 06:00 06:00 WBC 7.8 RBC 4.12 Hgb 11.5 Hct 35.4 MCV 86.0 MCH 28.0 MCHC 32.6 RDW 12.5 Plt Count 225 MPV 9.8 Sodium 136 Potassium 3.7 Chloride 99 Carbon Dioxide 28 Anion Gap 9 BUN 13 Creatinine 0.6 Creat Clearance w eGFR > 60 POC Glucometer [phone] Random Glucose 297 H Calcium 8.8 06/01/18 06/01/18 11:41 16:50 WBC RBC Hgb Hct MCV MCH MCHC RDW Plt Count MPV Sodium Potassium Chloride Carbon Dioxide Anion Gap BUN Creatinine Creat Clearance w eGFR POC Glucometer 336 360 Random Glucose Calcium Active Medications Generic Name Dose Route Start Last Admin Trade Name Freq PRN Reason Stop Dose Admin Acetaminophen 650 mg 05/30/18 23:40 06/01/18 06:25 Tylenol - PO 650 mg Q6H PRN Administration PAIN LEVEL 6-10 Heparin Sodium (Porcine) 5,000 unit 05/30/18 23:45 06/01/18 16:53 Heparin - SQ 5,000 unit TID NEEL Administration Clindamycin Phosphate 600 mg in 50 mls @ 100 mls/hr 05/31/18 11:45 06/01/18 17:14 Cleocin 600 Mg Premix Ivpb - IVPB 100 mls/hr Q8H-IV NEEL Administration Protocol Insulin Aspart 1 vial 10/17/18 22:00 06/01/18 16:54 Novolog Vial Sliding Scale - SQ 10 unit ACHS NEEL Administration Protocol Insulin Detemir 10 units 05/31/18 22:00 06/01/18 06:24 Levemir Vial SQ 10 unit BID@0700,2200 NEEL Administration Metformin HCl 1,000 mg 05/31/18 16:30 06/01/18 16:53 Glucophage Xr - PO 1,000 mg BIDAC NEEL Administration Rosuvastatin Calcium 20 mg 05/31/18 22:00 05/31/18 23:14 Crestor - PO 20 mg HS NEEL Administration ASSESSMENT/PLAN: 1. Labial abscess - s/p I&D - Continue Clindamycin (day 2 of 7) - Follow up with check airman (Dr. Hendrickson) as outpatient 2. Type 2 DM, uncontrolled with hyperglycemia - Increase Levemir - Continue metformin, Novolog sliding scale 3. Vaginal/vulvar candidiasis - Diflucan 150 mg x 1 now and repeat in 1 week 4. Hyponatremia - Improved 5. Depression 6. Hyperlipidemia - Continue Crestor 7. Disposition - Patient is requiring insulin. She says she has used Lantus in the past. As per pharmacy ([facility]) she has not received Lantus in 1 year. Patient reports she lost insurance 1 year ago. She has not been taking her meds or following with a physician since. She will need insulin at discharge. Will continue to adjust while here to achieve better control, until arrangements can be made for her to be able to receive insulin at home. At discharge will refer to [facility]. Visit type - Emergency Visit Emergency Visit: Yes ED Registration Date: 05/30/18 Care time: The patient presented to the Emergency Department on the above date and was hospitalized for further evaluation of their emergent condition. - New Patient This patient is new to me today: Yes Date on this admission: 06/01/18 - Critical Care Critical Care patient: No - Discharge Referral Referred to [facility] Med P.C.: No
[2018-06-01] MEDS: ROSUVASTATIN CA 20 MG TABLET (FP) PO SCH (21:13)
[2018-06-02] MEDS: CLINDAMYCIN 600MG PREMIX IVPB 600 MG/50 ML BAG IVPB SCH ×3 (02:01→19:05)
[2018-06-02] MEDS: HEPARIN NA (PORCINE) 5,000 UNITS/ML 1ML VIAL SQ SCH ×3 (05:35→21:34)
[2018-06-02] MEDS: INSULIN SLIDING SCALE (NOVOLOG) 1 VIAL SQ SCH ×4 (06:12→21:36)
[2018-06-02] MEDS: INSULIN (LEVEMIR) 100 UNITS/ML UNITS SQ SCH ×2 (06:12→21:35)
[2018-06-02] MEDS ORDERED: FLUCONAZOLE 150 MG TABLET PO ONE (10:00)
[2018-06-02] MEDS: ACETAMINOPHEN 325 MG TABLET (FP) PO PRN (12:19)
[2018-06-02] MEDS ORDERED: PT OWN MED DRAWER 7, Y5N ONE (12:27)
--- NOTE | 2018-06-02 16:40 | PN ---
Physical Exam: SUBJECTIVE: feels well, in no acute distress. wants to go home. patient expressed confidence in self administering insulin (levemir). has been taught my nursing. explained that she can go home once we are able to supply her with levemir as she is uninsured and unable to afford the cost of the levemir, needles and supplies offered to her by [facility] (across the street). I spoke to pharmacist at [facility] again today (mynor [phone]) who as been working with me in a discounted rate for patient. 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 $290. Otherwise, she is medically cleared for discharge. OBJECTIVE: Vital Signs Period Temp Pulse Resp BP Sys/Jeronimo Pulse Ox Last 24 Hr 98.1 F-99.1 F 80-85 18-20 112-138/66-84 GENERAL: The patient is awake, alert, and fully oriented, in no acute distress. HEAD: Normal with no signs of trauma. EYES: PERRL, extraocular movements intact, sclera anicteric, conjunctiva clear. No ptosis. ENT: Ears normal, nares patent, oropharynx clear without exudates, moist mucous membranes. NECK: Trachea midline, full range of motion, supple. ABDOMEN: Soft, nontender, nondistended, normoactive bowel sounds, no guarding, no rebound, no hepatosplenomegaly, no masses. PSYCH: Normal mood, normal affect. SKIN: s/p I&d of labial abscess. Laboratory Results - last 24 hr 06/01/18 06/01/18 06/02/18 16:50 20:45 05:30 POC Glucometer 360 338 321 06/02/18 12:20 POC Glucometer 315 Active Medications Generic Name Dose Route Start Last Admin Trade Name Freq PRN Reason Stop Dose Admin Acetaminophen 650 mg 05/30/18 23:40 06/02/18 12:19 Tylenol - PO 650 mg Q6H PRN Administration PAIN LEVEL 6-10 Heparin Sodium (Porcine) 5,000 unit 05/30/18 23:45 06/02/18 05:35 Heparin - SQ 5,000 unit TID NEEL Administration Clindamycin Phosphate 600 mg in 50 mls @ 100 mls/hr 05/31/18 11:45 06/02/18 12:21 Cleocin 600 Mg Premix Ivpb - IVPB 100 mls/hr Q8H-IV NEEL Administration Protocol Insulin Aspart 1 vial 05/30/18 22:00 06/02/18 12:25 Novolog Vial Sliding Scale - SQ 8 unit ACHS NEEL Administration Protocol Insulin Detemir 15 units 06/01/18 22:00 06/02/18 06:12 Levemir Vial SQ 15 units BID@0700,2200 NEEL Administration Metformin HCl 1,000 mg 05/31/18 16:30 06/02/18 06:12 Glucophage Xr - PO 1,000 mg BIDAC ENEL Administration Rosuvastatin Calcium 20 mg 05/31/18 22:00 06/01/18 21:13 Crestor - PO 20 mg HS NEEL Administration ASSESSMENT/PLAN: Patient is a 53 year old female with a significant past medical history of DM, HLD, Depression. She presented to the ED on 05/30/2018 with a left labial abscess and hyperglycemia. CHEMISTS Left labial abscess Afebrile, vitals stable. On Clindamycin. Oral clindamyin to be given for an additional 5 days as an outpatient. Endocrine Hyperglycemia hmga1c 13, uncontrolled DM Non compliance with Lantus 1 year ago secondary to cost and lack of insurance She is on Metformin 1000mg BID. Will send home on Levemir 20 units BID with close follow up at the clinic. A glucometer and test strips were given to patient previously. explained that she can go home once we are able to supply her with levemir as she is uninsured and unable to afford the cost of the levemir, needles and supplies offered to her by [facility] (across the street). I spoke to pharmacist at [facility] again today (mynor [phone]) who as been working with me in a discounted rate for patient. She will be DC home with PCP followup for DM and to monitor abx response in 3-5 days and CHEMISTS in 7 days. Visit type - Emergency Visit Emergency Visit: Yes ED Registration Date: 05/30/18 Care time: The patient presented to the Emergency Department on the above date and was hospitalized for further evaluation of their emergent condition. - New Patient This patient is new to me today: No - Critical Care Critical Care patient: No - Discharge Referral Referred to [facility] Med P.C.: No
[2018-06-02] MEDS: ROSUVASTATIN CA 20 MG TABLET (FP) PO SCH (21:36)
[2018-06-03] MEDS: CLINDAMYCIN 600MG PREMIX IVPB 600 MG/50 ML BAG IVPB SCH ×2 (01:21→10:41)
[2018-06-03] MEDS: HEPARIN NA (PORCINE) 5,000 UNITS/ML 1ML VIAL SQ SCH ×3 (06:18→21:04)
[2018-06-03] MEDS: INSULIN (LEVEMIR) 100 UNITS/ML UNITS SQ SCH ×2 (06:19→21:05)
[2018-06-03] MEDS: INSULIN SLIDING SCALE (NOVOLOG) 1 VIAL SQ SCH ×4 (06:19→21:04)
[2018-06-03] MEDS: ACETAMINOPHEN 325 MG TABLET (FP) PO PRN (10:42)
[2018-06-03] MEDS: CLINDAMYCIN HCL 150 MG CAPSULE (FP) PO SCH ×3 (12:37→23:45)
[2018-06-03] MEDS: BACITRACIN 15 GM TUBE TOPICAL OINTMENT TP SCH (12:37)
--- NOTE | 2018-06-03 14:42 | PN ---
Physical Exam: SUBJECTIVE: Patient seen and examined at the bedside. Feels well, in no acute distress. wants to go home. She is unfortunately uninsured, no prescription insurance and no funds to pay for the insulin (levemir) that we ordered for her. [facility] clinic is closed today (pharmacy across the street). [facility] is providing levemir vial, needles (60) and alcohol swabs at a discounted rate of $290. Patient is unable to pay this out of pocket. SW/case management aware. Other leonard, patient is medically cleared for discharge. Her labial cultures are showing 3 bacterial growths, await final culture. for now continue with clinidamycin. OBJECTIVE: Vital Signs Period Temp Pulse Resp BP Sys/Jeronimo Pulse Ox Last 24 Hr 98 F-98.7 F 77-87 18-18 122-125/69-76 98 GENERAL: The patient is awake, alert, and fully oriented, in no acute distress. HEAD: Normal with no signs of trauma. EYES: PERRL, extraocular movements intact, sclera anicteric, conjunctiva clear. No ptosis. ENT: Ears normal, nares patent, oropharynx clear without exudates, moist mucous membranes. NECK: Trachea midline, full range of motion, supple. ABDOMEN: Soft, nontender, nondistended, normoactive bowel sounds, no guarding, no rebound, no hepatosplenomegaly, no masses. PSYCH: Normal mood, normal affect. SKIN: s/p I&d of labial abscess-abscess site improving, still red and sore. will add small dose of bacitracin as patient seems to be touching the area with her bare hands. Laboratory Results - last 24 hr 06/02/18 06/02/18 06/03/18 16:47 21:33 06:17 POC Glucometer 259 247 286 06/03/18 12:02 POC Glucometer 282 Active Medications Generic Name Dose Route Start Last Admin Trade Name Freq PRN Reason Stop Dose Admin Acetaminophen 650 mg 05/30/18 23:40 06/03/18 10:42 Tylenol - PO 650 mg Q6H PRN Administration PAIN LEVEL 6-10 Bacitracin 1 applic 06/03/18 11:00 06/03/18 12:37 Bacitracin - TP 1 applic DAILY NEEL Administration Clindamycin HCl 300 mg 06/03/18 10:55 06/03/18 12:37 Cleocin - PO 300 mg Q6HPO NEEL Administration Heparin Sodium (Porcine) 5,000 unit 05/30/18 23:45 06/03/18 13:51 Heparin - SQ 5,000 unit TID NEEL Administration Insulin Aspart 1 vial 05/30/18 22:00 06/03/18 12:31 Novolog Vial Sliding Scale - SQ 6 unit ACHS NEEL Administration Protocol Insulin Detemir 20 units 06/02/18 22:00 06/03/18 06:19 Levemir Vial SQ 20 units BID@0700,2200 NEEL Administration Metformin HCl 1,000 mg 05/31/18 16:30 06/03/18 06:18 Glucophage Xr - PO 1,000 mg BIDAC NEEL Administration Rosuvastatin Calcium 20 mg 05/31/18 22:00 06/02/18 21:36 Crestor - PO 20 mg HS NEEL Administration ASSESSMENT/PLAN: Patient is a 53 year old female with a significant past medical history of DM, HLD, Depression. She presented to the ED on 05/30/2018 with a left labial abscess and hyperglycemia. Diabetes is not a new diagosis. She was on Lantus a year ago and did not take the medication after her insurance ran out. 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 On Clindamycin. wound culture with 3 bacterial growths. Awaiting final culture. Oral clindamyin 300mg q6 MANNEQUIN COLORING ARTIST follow up outpatient. Endocrine Hyperglycemia/DM2 hmga1c 13, uncontrolled DM Non compliance with Lantus 1 year ago secondary to cost and lack of insurance She is on Metformin 1000mg BID. Will send home on Levemir 20 units BID with close follow up at the [facility]. A glucometer and test strips were given to patient previously. She will be DC home with PCP followup for DM and to monitor abx response in 3-5 days and MANNEQUIN COLORING ARTIST in 7 days. Awaiting resolution of her basal insulin (cost) before discharging. Visit type - Emergency Visit Emergency Visit: Yes ED Registration Date: 05/30/18 Care time: The patient presented to the Emergency Department on the above date and was hospitalized for further evaluation of their emergent condition. - New Patient This patient is new to me today: No - Critical Care Critical Care patient: No - Discharge Referral Referred to [facility] Med P.C.: No
[2018-06-03] MEDS: ROSUVASTATIN CA 20 MG TABLET (FP) PO SCH (21:05)
[2018-06-04] MEDS: CLINDAMYCIN HCL 150 MG CAPSULE (FP) PO SCH ×2 (05:38→12:05)
[2018-06-04] MEDS: HEPARIN NA (PORCINE) 5,000 UNITS/ML 1ML VIAL SQ SCH ×2 (05:47→14:01)
[2018-06-04] MEDS: INSULIN (LEVEMIR) 100 UNITS/ML UNITS SQ SCH (06:26)
[2018-06-04] MEDS: INSULIN SLIDING SCALE (NOVOLOG) 1 VIAL SQ SCH ×2 (06:26→12:04)
[2018-06-04] MEDS: BACITRACIN 15 GM TUBE TOPICAL OINTMENT TP SCH (09:10)
[2018-06-04 14:59] VITALS: BP 111/71; PULSE 90; TEMP 98.8
--- NOTE | 2018-06-04 15:00 | DS ---
Physical Exam: SUBJECTIVE: Patient seen and examined at the bedside. Feels well, in no acute distress. wants to go home. She is unfortunately uninsured, no prescription insurance and no funds to pay for the insulin (levemir) that we ordered for her. [facility] clinic (across the street) provided her with levemir vial, needles (60) and alcohol swabs at a discounted rate of $290 which we have provided her. patient is medically cleared for discharge. Her wound culture showed sensitivity to PCN, will give augmentin 875 x 5 days. called into her pharmacy. States she has money to pay for this medication. OBJECTIVE: Vital Signs Period Temp Pulse Resp BP Sys/Jeronimo Pulse Ox Last 24 Hr 98.4 F-98.9 F 80-90 18-20 109-130/71-79 PHYSICAL EXAM GENERAL: The patient is awake, alert, and fully oriented, in no acute distress. HEAD: Normal with no signs of trauma. EYES: PERRL, extraocular movements intact, sclera anicteric, conjunctiva clear. No ptosis. ENT: Ears normal, nares patent, oropharynx clear without exudates, moist mucous membranes. NECK: Trachea midline, full range of motion, supple. ABDOMEN: Soft, nontender, nondistended, normoactive bowel sounds, no guarding, no rebound, no hepatosplenomegaly, no masses. PSYCH: Normal mood, normal affect. SKIN: s/p I&d of labial abscess-abscess site improving, still red and sore. will add small dose of bacitracin as patient seems to be touching the area with her bare hands. LABS Laboratory Results - last 24 hr 06/03/18 06/03/18 06/04/18 16:56 20:33 06:25 POC Glucometer 240 392 255 06/04/18 11:48 POC Glucometer 224 HOSPITAL COURSE: Date of Admission:05/30/18 Date of Discharge: 06/04/18 Patient is a 53 year old female with a significant past medical history of DM, HLD, Depression. She presented to the ED on 05/30/2018 with a left labial abscess and hyperglycemia. Diabetes is not a new diagnosis. She was on Lantus a year ago and did not take the medication after her insurance ran out. She states that she will be insured shortly through [employer]. GENERAL SURGEON Left labial abscess, I&D in the ED. Afebrile, vitals stable. Given Clindamycin IV during hospitalization. Wound cultures shows sensitivities to PCN. Augmentin 875mg given x 5 days. GENERAL SURGEON follow up outpatient. Wound less reddened, less inflamed. Appears to be healing. Endocrine Hyperglycemia/DM2 hmga1c 13, uncontrolled DM Non compliance with Lantus 1 year ago secondary to cost of med and lack of insurance She is on Metformin 1000mg BID. Will send home on Levemir 20 units BID with close follow up at the [facility]. A glucometer and test strips were given to patient previously. and she states she has a glucometer at home. She has been taught how to self inject Levemir. She will be DC home with PCP followup for DM and to monitor abx response in 3-5 days and GENERAL SURGEON in 7 days. Minutes to complete discharge: 60 Discharge Summary Reason For Visit: ABCESS OF LEFT GENITAL LABIA/HPYERGLYCEMIA Current Active Problems Abscess of left genital labia (Acute) Hyperglycemia (Acute) Diabetes (Chronic) Hyperlipidemia (Chronic) Condition: Fair - Instructions Diet, Activity, Other Instructions: Mrs Sexton: You were admitted for an infection of your left labial area. Your blood sugars were also noted to be high and we have started you on Levemir 20mg twice per day. These are our recommendations: Diabetes: Take Levemir 20 units twice per day, in the morning and at bedtime. Check your blood sugars with your home glucometer and keep a log of your readings. It is important that you bring this to your doctor. They may need to change your dosage of Levemir. Continue diabetic diet. I have referred you to an technical maintenance specialist to help better manage your insulin. Labial infection: Please follow up with the clinic between 3-5 days. You also need to see the GENERAL SURGEON in 1 week. Start taking the Amoxcillin 875 mg twice per day, for 5 more days, it has been called into your pharmacy at [facility]. Please call me with questions. Pinky Robert Rutherford RETREAD MOLD OPERATOR [phone] [facility] Diet: Diabetic diet; please eliminate added sugars, check AC+HS glucose, and followup with PCP Referrals: Michele Robertson MD [Staff Physician] - 1 Week Gloria Hendrickson MD [Staff Physician] - 1 Week (For followu of labial abscess) Goldie Damico MD [Staff Physician] - 1 Week Disposition: HOME - Home Medications Comprehensive Discharge Medication List: Ambulatory Orders Metformin HCl [Metformin HCl ER] 1,000 mg PO BID 05/14/18 Clindamycin [Cleocin -] 300 mg PO Q6HPO #28 capsule 05/31/18 Insulin (Levemir) [Levemir Vial] 5 units SQ BID #1 vial 05/31/18 Miscellaneous Medical Supply [Glucometer Device] 1 each AD ASDIR #1 kit Miscellaneous Medical Supply [Glucometer Test Strips #100] 1 each AD ASDIR #1 box 05/31/18 Rosuvastatin [Crestor -] 20 mg PO HS 30 Days #30 tablet 05/31/18 Alcohol Antiseptic Pads [Alcohol Prep Pads] 1 each TP ASDIR #1 box 06/01/18 Clindamycin [Cleocin -] 300 mg PO QID 7 Days #28 capsule 06/01/18 Insulin (Levemir) [Levemir Vial] 10 units SQ BID #10 ml 06/01/18 Syringe with Needle, 1 ml [Easy Touch] 1 each MC BID #60 disp.syrin 06/01/18 Amoxicillin/Potassium Clav [Augmentin 875-125 Tablet] 1 each PO BID #10 tablet 06/04/18 This patient is new to me today: Yes Date on this admission: 06/04/18 Emergency Visit: No Critical Care patient: No - Discharge Referral Referred to [facility] No
== END 2018-06-04 17:50 | disposition home or self-care (01) | DRG 531 ==
LOC: JER 13:22 → JERBED 17:05 → OBSVTOIN 20:17 → J7W 05-31 23:03
PROVIDERS: ADMIT Internal Medicine; ATTEND Nurse Practitioner Family
PROC: 0U9MXZX Drainage of Vulva, External Approach, Diagnostic (ICD-10-PCS; principal; 2018-05-30)
DX: N76.4 Abscess of vulva (principal); E11.65 Type 2 diabetes mellitus with hyperglycemia; E78.5 Hyperlipidemia, unspecified; F32.9 Major depressive disorder, single episode, unspecified; E87.1 Hypo-osmolality and hyponatremia; B37.3 Candidiasis of vulva and vagina; Z91.14 Patient's other noncompliance with medication regimen; Z59.6 Low income
CPT/HCPCS: 36415; 80048; 80053; 80061; 81003; 81015; 82009; 82947; 82962; 83036; 83721; 85025; 85027; 85610; 86850; 86900; 86901; 87070; 87077; 87186; 87205; 87389; 93005; 93010; 99283-25; G0378; J1644; J7030

== ENCOUNTER 2019-05-25 16:28 | Emergency (ER) | payer OTHER ==
[2019-05-25 16:36] VITALS: BP 107/66; PULSE 92; TEMP 97.8; BMI 27.3
[2019-05-25] MEDS ORDERED: KETOROLAC TROMETHAMINE 30 MG/1 ML VIAL IM ONE (17:14)
[2019-05-25] MEDS ORDERED: KETOROLAC TROMETHAMINE 30 MG/1 ML VIAL ONE (17:16)
--- NOTE | 2019-05-25 17:32 | PDOC ---
History of Present Illness - General Chief Complaint: Pain, Acute Stated Complaint: RT.THIGH & KNEE PAIN/RASH Time Seen by Provider: 05/25/19 16:39 History Source: Patient Exam Limitations: No Limitations - History of Present Illness Initial Comments: 05/25/19 18:19 54 year old female with medical history of DM, x 3, cholecystectomy presents with pain in right thighx 10 days. Patient reports no injury or fall, states took tylenol with no relief of symptoms. Denies numbness or tingling in toes. Occurred: reports: other (10 days) Severity: Yes: moderate Lower Extremity Pain Location: right: leg Method of Injury: Yes: unknown Modifying Factors: improves with: immobilization, pain medication Lower Ext. Injury Location - Specific Injury Location Hips: bilateral hip: no evidence of injury Legs: right: pain Knees: bilateral no evidence of injury Ankle: bilateral no evidence of injury Foot: bilateral foot no evidence of injury Extremity Pain Location - Extremity Pain Location Extremity Pain Locations: right: leg Past History - Travel Traveled outside of the country in the last 30 days: No Close contact w/someone who was outside of country & ill: No - Past Medical History Allergies/Adverse Reactions: Allergies Allergy/AdvReac Type Severity Reaction Status Date / Time No Known Allergies Allergy Verified 05/14/18 12:12 Home Medications: Ambulatory Orders metFORMIN HCL [Metformin ER Gastric] 1,000 mg PO BID 05/14/18 Aspirin 81 mg PO DAILY 09/13/18 Atorvastatin Calcium 40 mg PO HS 09/13/18 Insulin Glargine,Hum.rec.anlog [Basaglar Kwikpen U-100] 30 unit SQ ASDIR Insulin Lispro [Admelog Solostar] unit SQ ASDIR 09/13/18 Lisinopril [Prinivil] 5 mg PO DAILY 09/13/18 Ibuprofen 600 mg PO TID #30 tablet 05/25/19 Anemia: No Asthma: No Cancer: No Cardiac Disorders: No CVA: No COPD: No CHF: No Dementia: No Diabetes: Yes GI Disorders: No Disorders: No HTN: No Hypercholesterolemia: Yes Liver Disease: No Seizures: No Thyroid Disease: No - Surgical History Abdominal Surgery: No Appendectomy: No Cardiac Surgery: No Cholecystectomy: No Lung Surgery: No Neurologic Surgery: No Orthopedic Surgery: No - Immunization History Immunization Up to Date: Yes - Psycho Social/Smoking Cessation Hx Smoking History: Never smoked Have you smoked in the past 12 months: No Information on smoking cessation initiated: No Hx Alcohol Use: No Drug/Substance Use Hx: No Substance Use Type: None Hx Substance Use Treatment: No Review of Systems - Review of Systems Able to Perform ROS?: No Is the patient limited Japanese proficient: No Constitutional: No: Chills, Fever HEENTM: No: Nose Pain, Hearing Loss, Throat Pain Respiratory: No: Orthopnea, Shortness of Breath, SOB at Rest, Wheezing Cardiac (ROS): No: Chest Pain, Lightheadedness, Palpitations ABD/GI: No: Poor Appetite, Vomiting, Indigestion : No: Dysuria, Pain Musculoskeletal: Yes: Joint Pain, Muscle Pain. No: Back Pain, Joint Swelling Integumentary: No: Change in Color, Erythema, Flushing, Lesions Neurological: No: Numbness, Seizure, Tingling Psychiatric: No: Stressors, Sleep Pattern Change, Mood Swings Endocrine: No: Intolerance to Heat, Increased Hunger, Increased Urine Hematologic/Lymphatic: No: Bleeding Diathesis *Physical Exam - Vital Signs Last Vital Signs Temp Pulse Resp BP Pulse Ox 97.8 F 92 H 16 107/66 100 05/25/19 16:32 05/25/19 16:32 05/25/19 16:32 05/25/19 16:32 05/25/19 16:32 - Physical Exam General Appearance: Yes: Nourished, Appropriately Dressed HEENT: positive: SHANIA, TMs Normal, Pharynx Normal Neck: positive: Supple. negative: Lymphadenopathy (R), Lymphadenopathy (L) Respiratory/Chest: positive: Lungs Clear Cardiovascular: positive: Regular Rhythm, Regular Rate Extremity: positive: Normal Capillary Refill. negative: Swelling, Erythema, Inflammation Integumentary: negative: Erythema, Swelling Neurologic: positive: Fully Oriented, Alert ED Treatment Course - RADIOLOGY Radiology Studies Ordered: Category Date Time Status FEMUR-RIGHT [RAD] Stat Radiology 05/25/19 17:14 Ordered Medical Decision Making - Medical Decision Making 05/25/19 18:25 54 year old female with medical history of DM, x 3, cholecystectomy presents with pain in right thighx 10 days. Patient reports no injury or fall, states took tylenol with no relief of symptoms. right thigh pain xray analgesia -negative xray of femur rx: ibuprofen Discharge - Discharge Information Problems reviewed: Yes Clinical Impression/Diagnosis: Thigh pain Qualifiers: Laterality: right Qualified Code(s): M79.651 - Pain in right thigh Condition: Stable Disposition: HOME - Admission No - Additional Discharge Information Prescriptions: Ibuprofen 600 mg PO TID #30 tablet - Follow up/Referral Referrals: Aidee Roe MD [Primary Care Provider] - - Patient Discharge Instructions Patient Printed Discharge Instructions: DI for Leg Pain Additional Instructions: please call primary phsician for follow up appointment - Post Discharge Activity
== END 2019-05-25 18:32 | disposition home or self-care (01) ==
LOC: JERFT 16:28
PROC: 3E0233Z Introduction of Anti-inflammatory into Muscle, Percutaneous Approach (ICD-10-PCS; principal; 2019-05-25)
DX: M79.651 Pain in right thigh (principal); E11.9 Type 2 diabetes mellitus without complications; Z79.4 Long term (current) use of insulin; E78.00 Pure hypercholesterolemia, unspecified; Z90.49 Acquired absence of other specified parts of digestive tract
CPT/HCPCS: 73552-TC-RT-FY; 96372; 99281-25

== ENCOUNTER 2019-06-02 | Emergency (ER) | payer OTHER ==
[2019-06-02 00:11] VITALS: BMI 30.2
--- NOTE | 2019-06-02 00:15 | PDOC ---
History of Present Illness - General Chief Complaint: Pain, Acute Stated Complaint: PAIN Time Seen by Provider: 06/02/19 00:14 History Source: Patient Exam Limitations: No Limitations - History of Present Illness Initial Comments: 06/02/19 00:14 Beatriz Sexton is a 54yF w PMHx DM presenting w R leg pain. 18d ago sudden onset constant shooting R thigh pain. Denies trauma, wounds to leg, travel. Able to ambulate, normal sensation to legs. Seen 8d ago in ED, XR did not show fracture, d/c home w ibuprofen without improvement. Denies fever, chest pain, SOB, urinary/bowel incontinence. Past History - Past Medical History Allergies/Adverse Reactions: Allergies Allergy/AdvReac Type Severity Reaction Status Date / Time No Known Allergies Allergy Verified 06/02/19 00:09 Home Medications: Ambulatory Orders metFORMIN HCL [Metformin ER Gastric] 1,000 mg PO BID 05/14/18 Aspirin 81 mg PO DAILY 09/13/18 Atorvastatin Calcium 40 mg PO HS 09/13/18 Insulin Glargine,Hum.rec.anlog [Basaglar Kwikpen U-100] 30 unit SQ ASDIR Insulin Lispro [Admelog Solostar] unit SQ ASDIR 09/13/18 Lisinopril [Prinivil] 5 mg PO DAILY 09/13/18 Ibuprofen 600 mg PO TID #30 tablet 05/25/19 Cyclobenzaprine HCl [Flexeril 10 mg] 10 mg PO BID PRN #10 tablet 06/02/19 Anemia: No Asthma: No Cancer: No Cardiac Disorders: No CVA: No COPD: No CHF: No Dementia: No Diabetes: Yes GI Disorders: No Disorders: No HTN: No Hypercholesterolemia: Yes Liver Disease: No Seizures: No Thyroid Disease: No - Surgical History Abdominal Surgery: No Appendectomy: No Cardiac Surgery: No Cholecystectomy: No Lung Surgery: No Neurologic Surgery: No Orthopedic Surgery: No - Immunization History Immunization Up to Date: Yes - Psycho Social/Smoking Cessation Hx Smoking History: Never smoked Have you smoked in the past 12 months: No Information on smoking cessation initiated: No Hx Alcohol Use: No Drug/Substance Use Hx: No Substance Use Type: None Hx Substance Use Treatment: No Review of Systems - Review of Systems Constitutional: No: Chills, Fever HEENTM: No: Eye Pain, Nose Pain, Throat Pain, Mouth Pain Respiratory: No: Cough, Shortness of Breath Cardiac (ROS): No: Chest Pain, Palpitations, Syncope ABD/GI: No: Abdominal Distended, Constipated, Diarrhea, Nausea, Vomiting : No: Burning, Dysuria, Flank Pain, Hematuria, Incontinence Musculoskeletal: Yes: Muscle Pain (R leg pain). No: Back Pain Integumentary: No: Bruising, Flushing, Lesions Neurological: No: Headache, Seizure, Tingling, Tremors Psychiatric: No: Anxiety, Depression, Stressors Endocrine: No: Excessive Sweating, Flushing, Intolerance to Cold, Intolerance to Heat Hematologic/Lymphatic: No: Anemia, Blood Clots, Easy Bleeding *Physical Exam - Vital Signs Last Vital Signs Temp Pulse Resp BP Pulse Ox 98.6 F 92 H 20 158/98 99 06/02/19 00:09 06/02/19 00:09 06/02/19 00:09 06/02/19 00:09 06/02/19 00:09 - Physical Exam General Appearance: Yes: Nourished, Appropriately Dressed. No: Apparent Distress HEENT: positive: EOMI, SHANIA, Normal Voice, Hearing Grossly Normal. negative: Scleral Icterus (R), Scleral Icterus (L), Nasal Congestion, Rhinorrhea Respiratory/Chest: positive: Lungs Clear, Normal Breath Sounds. negative: Chest Tender, Respiratory Distress, Crackles, Rales, Rhonchi, Stridor, Wheezing Cardiovascular: positive: Regular Rhythm, Regular Rate, S1, S2. negative: Edema , Murmur Vascular Pulses: Dorsalis-Pedis (R): 3+, Doralis-Pedis (L): 3+ Musculoskeletal: positive: Normal Inspection. negative: CVA Tenderness (R), CVA Tenderness (L), Vertebral Tenderness Extremity: positive: Other (mild tenderness R anterior thigh. No edema/erythema/ warmth/abrasion) Integumentary: positive: Normal Color. negative: Rash, Ecchymosis, Bruising Neurologic: positive: Fully Oriented, Alert, Normal Response, Motor Strength 5/5 , Responsive. negative: Numbness, Sensory Deficit, Confused, Disoriented Medical Decision Making - Medical Decision Making 06/02/19 00:44 Beatriz Sexton is a 54yF w PMHx DM presenting w R leg pain likely MSK. Neurovascular intact. No concern for DVT (leg not swollen, no recent travel) or cauda equina (no urinary/bowel incontinence, retained BLE sensation). Pt ambulated without assistance. Duplex US did not show DVT. Given flexeril, tylenol w codeine, robaxin for pain. D/c home w flexeril prescription, PCP f/u Discharge - Discharge Information Problems reviewed: Yes Clinical Impression/Diagnosis: Right thigh pain Condition: Good Disposition: HOME - Admission No - Additional Discharge Information Prescriptions: Cyclobenzaprine HCl [Flexeril 10 mg] 10 mg PO BID PRN #10 tablet PRN Reason: Moderate Pain - Follow up/Referral Referrals: Aidee Roe MD [Primary Care Provider] - - Patient Discharge Instructions Patient Printed Discharge Instructions: DI for Leg Pain Additional Instructions: You were seen for leg pain. Your ultrasound did not show anything concerning. You were given medication for your pain. Make an appointment to see your primary care doctor within the next 1-2 days. You can take the prescribed Flexeril as directed on packaging if you continue to have pain. Drink lots of water Come back to the ED if you cannot walk or lose sensation in your legs. --- Te vieron por dolor en las piernas. Magana ultrasonido no mostr nada preocupante. Le dieron medicamentos para magana dolor. Jerilyn efraín emmanuel para alexandria a magana mdico de atencin primaria en los prximos 1-2 lantigua. Puede xiao el Flexeril prescrito segn lo indicado en el envase si contina teniendo dolor. Beber ophelia agua Regrese al servicio de urgencias si no puede caminar o pierde la sensibilidad en las piernas. - Post Discharge Activity
[2019-06-02] MEDS ORDERED: CYCLOBENZAPRINE HCL 10 MG TABLET (FP) PO ONE (00:37)
[2019-06-02] MEDS ORDERED: ACETAMINOPHEN WITH CODEINE 300MG/30MG TABLET PO ONE (01:20)
[2019-06-02] MEDS ORDERED: ACETAMINOPHEN WITH CODEINE 300MG/30MG TABLET ONE (01:50)
[2019-06-02] MEDS ORDERED: CYCLOBENZAPRINE HCL 10 MG TABLET (FP) ONE (01:50)
--- NOTE | 2019-06-02 01:57 | PDOC ---
Documentation entered by Radha Beltrán SCRIBE, acting as scribe for Mnoe Benavides MD. Mone Benavides MD: This documentation has been prepared by the Leigh Ann pierre Nirvannie, SCRIBE, under my direction and personally reviewed by me in its entirety. I confirm that the documentation accurately reflects all work, treatment, procedures, and medical decision making performed by me. Attending Attestation - Resident Resident Name: Acosta Ordaz - ED Attending Attestation I have performed the following: I have examined & evaluated the patient, The case was reviewed & discussed with the resident, I agree w/resident's findings & plan - HPI HPI: 06/02/19 01:11 The patient is a 54 year old female, with a significant past medical history of DM and hyperlipidemia, who presents to the emergency department with 18 days of constant right anterior thigh pain. No traumatic injuries No fevers or chills Pt is ambulatory but does note pain Patient was evaluated in the ED with similar symptoms on 05/25 with a negative xray. No recent travel No leg swelling pt has had right lower back pain pt has no weakness Allergies: NKDA 06/02/19 01:26 06/02/19 01:35 - Physicial Exam PE: 06/02/19 01:24 GENERAL: The patient is in no acute distress. ENT: Ears normal, nares patent, oropharynx clear without exudates. Moist mucous membranes. NECK: Normal range of motion, supple LUNGS: Breath sounds equal, clear to auscultation bilaterally. No wheezes, and no crackles. HEART:Regular rate and rhythm, normal S1 and S2 without murmur, rub or gallop. ABDOMEN: Soft, nontender, normoactive bowel sounds. EXTREMITIES: Normal range of motion, no edema. NEUROLOGICAL: Cranial nerves II through XII grossly intact. Normal speech. No focal neurological deficits. No midline back tenderness right buttock tenderness able to lift at hip, flex at knee, dorsi and plantar flex Pt is able to cross leg Sensation in tact SKIN: Warm, Dry, normal turgor, no rashes or lesions noted. 06/02/19 01:52 - Medical Decision Making 06/02/19 01:25 54 yo F presenting with right leg pain which has been present for almost 3 weeks No traumatic injuries no weakness No numbness 06/02/19 01:38 Will do duplex Will give flexeril Will ask pt to follow up with PMD Signed out to Dr. Quiles, pending U/s and re assessment
[2019-06-02] MEDS ORDERED: METHOCARBAMOL 750 MG TABLET PO ONE (02:10)
[2019-06-02] MEDS ORDERED: METHOCARBAMOL 500 MG TABLET ONE (02:33)
[2019-06-02 03:44] VITALS: BP 158/90; PULSE 88; TEMP 99
== END 2019-06-02 03:35 | disposition home or self-care (01) ==
LOC: JER
DX: M79.651 Pain in right thigh (principal); E11.9 Type 2 diabetes mellitus without complications; Z79.4 Long term (current) use of insulin; E78.00 Pure hypercholesterolemia, unspecified; E78.5 Hyperlipidemia, unspecified
CPT/HCPCS: 93971-TC; 99282-25

== ENCOUNTER 2019-07-18 05:42 | Observation (INO) | payer OTHER ==
[2019-07-18 05:54] VITALS: BMI 28.1
[2019-07-18 06:40] LABS: VENOUS PO2 < 49 mmHg (28-48)
[2019-07-18 06:51] LABS: BASO % 0.4 % (0-2.0); EOS % 1.6 % (0-4.5); HEMATOCRIT 31.9 % (32.4-45.2); HEMOGLOBIN 10.9 GM/dL (10.7-15.3); LYMPH % 40.8 % (8-40); MCH 28.7 pg (25.7-33.7); MEAN CELL VOLUME 84.4 fl (80-96); MEAN PLT VOLUME 9.5 fl (7.5-11.1); MONO % 10.4 % (3.8-10.2); NEUT % 46.8 % (42.8-82.8); PLATELET COUNT 201 K/MM3 (134-434); RBC 3.78 M/mm3 (3.60-5.2); RDW 13.4 % (11.6-15.6)
[2019-07-18 07:08] LABS: ALBUMIN 3.8 g/dl (3.4-5.0); BILIRUBIN,TOTAL 0.2 mg/dL (0.2-1); BLOOD UREA NITROGEN 17.4 mg/dL (7-18); CALCIUM 9.1 mg/dL (8.5-10.1); CREATININE 0.8 mg/dL (0.55-1.3); MAGNESIUM 1.9 mg/dL (1.8-2.4); POTASSIUM 4.1 mmol/L (3.5-5.1); TOT PROT 6.9 g/dl (6.4-8.2)
--- NOTE | 2019-07-18 07:30 | PDOC ---
Attending Attestation - Resident Resident Name: Christ Mccallum - ED Attending Attestation I have performed the following: I have examined & evaluated the patient, The case was reviewed & discussed with the resident, I agree w/resident's findings & plan, Exceptions are as noted - HPI HPI: 07/18/19 07:31 54y F htn, hl, dm, presents with complain of chest pain, shoulder pain and headache starting around 11 last night, patient also notes that her blood sugar was elevated over 500 she took some insulin. Patient notes that the chest pain seemed to be worse when she was going upstairs. patient denies any fever, chills, cough, hemoptysis, dyspnea on exertion, diaphoresis, leg swelling. Patient denies any history of known cardiac disease. denies recreational drug use. Exam: GENERAL: The patient is awake, alert, and fully oriented, Nontoxic - in no acute distress. HEAD: Normocephalic, atraumatic. EYES: extraocular movements intact, sclera anicteric, conjunctiva clear. ENT: Normal voice, Moist mucous membranes. NECK: Normal range of motion, supple LUNGS: Breath sounds equal, clear to auscultation bilaterally. No wheezes, no rhonchi, no rales. HEART: Regular rate and rhythm, normal S1 and S2 without murmur, rub or gallop. ABDOMEN: Soft, nontender, No guarding, no rebound. No CVA tenderness BACK: Mild repoducible tenderness to the trapezius bilaterally EXTREMITIES: Normal range of motion, no edema. NEUROLOGICAL: No facial assymetry, Normal speech, PSYCH: Normal mood, normal affect. SKIN: Warm, Dry, normal turgor, Differential for the patient's symptoms includes possible hypoglycemia, ACS, pancreatitis, MSK pain. We will give the patient's Pepcid, Maalox, Tylenol, fluids Basic labs were originally drawn and reviewed, noted for mild hyper glycemia without signs of DKA. Troponin negative x1 Will reassess - Physicial Exam PE: 07/18/19 10:06 See above - Medical Decision Making 07/18/19 10:05 Patient's labs are reviewed lipase borderline, however do not believe that her chest pain is secondary to pancreatitis. Consider possible ACS due to exertional chest pain. Will observe patient for further risk stratification Heart Score/ECG Review - ECG Impressions Comment:: 07/18/19 07:49 Twelve-lead EKG was performed and reviewed by me. There is normal sinus rhythm with a normal rate. The axis is normal. Rate of 89 There is normal R wave progression There are no ST or T wave abnormalities.
[2019-07-18] MEDS ORDERED: MAG HYDROX/AL HYDROX/SIMETH 30 ML UNIT-DOSE CUP PO ONE (07:32)
[2019-07-18] MEDS ORDERED: FAMOTIDINE 20 MG/50 ML IVPB 20 MG/50 ML MG IVPB ONE ×2 (07:32→07:40)
--- NOTE | 2019-07-18 07:36 | PDOC ---
History of Present Illness - General History Source: Patient Exam Limitations: No Limitations - History of Present Illness Initial Comments: 07/18/19 07:49 54 yo female pmh HTN, HLD, elevated triglycerides, IDDM, depression presents to the ED with exertional CP, shoulder pain and headache. Pt states the pain began last night around 11 pm while resting, pain is made worse with walking up stairs , substernal with radiation to the back, no relieving factors and is described as severe. Pt admits to similar pain in the past, last echo in [facility] shows EF 66% in 2016. Denies recent travel, calf tenderness, leg swelling SOB, abdominal bolivar, N/V/F/C, changes in bowel or bladder habits. Denies hx of cardiac disease <Christ Mccallum - Last Filed: 07/18/19 09:38> <Dick Figueroa - Last Filed: 07/20/19 08:37> - General Chief Complaint: Chest Pain Stated Complaint: PAIN Time Seen by Provider: 07/18/19 07:13 Past History - Past Medical History Anemia: No Asthma: No Cancer: No Cardiac Disorders: No CVA: No COPD: No CHF: No Dementia: No Diabetes: Yes GI Disorders: No Disorders: No HTN: No Hypercholesterolemia: Yes Liver Disease: No Seizures: No Thyroid Disease: No - Surgical History Abdominal Surgery: No Appendectomy: No Cardiac Surgery: No Cholecystectomy: No Lung Surgery: No Neurologic Surgery: No Orthopedic Surgery: No - Immunization History Immunization Up to Date: Yes - Psycho Social/Smoking Cessation Hx Smoking History: Never smoked Have you smoked in the past 12 months: No Hx Alcohol Use: No Drug/Substance Use Hx: No Substance Use Type: None Hx Substance Use Treatment: No <Christ Mccallum - Last Filed: 07/18/19 09:38> <Dick Figueroa - Last Filed: 07/20/19 08:37> - Past Medical History Allergies/Adverse Reactions: Allergies Allergy/AdvReac Type Severity Reaction Status Date / Time No Known Allergies Allergy Verified 07/18/19 05:52 Home Medications: Ambulatory Orders metFORMIN HCL [Metformin ER Gastric] 1,000 mg PO BID 05/14/18 Aspirin 81 mg PO DAILY 09/13/18 Insulin Glargine,Hum.rec.anlog [Basaglar Kwikpen U-100] 50 unit SQ HS 09/13/18 Insulin Lispro [Admelog Solostar] 40 unit SQ BID 09/13/18 Lisinopril [Prinivil] 5 mg PO DAILY 09/13/18 Ibuprofen 600 mg PO TID #30 tablet 05/25/19 Cyclobenzaprine HCl [Flexeril 10 mg] 10 mg PO BID PRN #10 tablet 06/02/19 Pioglitazone HCl [Actos] 45 mg PO DAILY 07/18/19 Prednisolone 1% Ophthalmic [Pred Forte 1% -] 1 drop OD DAILY 07/18/19 Sertraline HCl [Zoloft -] 50 mg PO HS 07/18/19 Atorvastatin Ca [Lipitor] 80 mg PO HS #30 tab 07/19/19 Atorvastatin Ca [Lipitor] 80 mg PO HS #60 tablet 07/19/19 Review of Systems - Review of Systems Constitutional: No: Chills, Fever HEENTM: No: Blurred Vision, Double Vision Respiratory: No: Shortness of Breath Cardiac (ROS): Yes: Chest Pain. No: Edema, Lightheadedness, Palpitations ABD/GI: No: Constipated, Diarrhea, Nausea, Vomiting : No: Burning, Dysuria, Frequency, Flank Pain Musculoskeletal: Yes: Back Pain, Other (shoulder pain) Neurological: No: Numbness, Paresthesia, Weakness <Christ Mccallum - Last Filed: 07/18/19 09:38> *Physical Exam - Vital Signs Last Vital Signs Temp Pulse Resp BP Pulse Ox 97.9 F 100 H 16 144/101 H 100 07/18/19 05:52 07/18/19 05:52 07/18/19 05:52 07/18/19 05:52 07/18/19 05:52 - Physical Exam General Appearance: Yes: Nourished, Appropriately Dressed, Apparent Distress HEENT: positive: EOMI Neck: positive: Supple. negative: Carotid bruit Respiratory/Chest: positive: Lungs Clear, Normal Breath Sounds. negative: Respiratory Distress Cardiovascular: positive: Regular Rhythm, Regular Rate, S1, S2. negative: Edema , JVD, Murmur Vascular Pulses: Dorsalis-Pedis (R): 4+, Doralis-Pedis (L): 4+ Gastrointestinal/Abdominal: positive: Flat, Soft. negative: Pulsatile Mass, Distended, Guarding, Rebound, Tenderness Musculoskeletal: negative: CVA Tenderness Extremity: positive: Normal Capillary Refill, Normal Inspection, Normal Range of Motion Integumentary: positive: Normal Color, Dry, Warm Neurologic: positive: Fully Oriented, Alert, Normal Mood/Affect, Normal Response <Christ Mccallum - Last Filed: 07/18/19 09:38> - Vital Signs Last Vital Signs Temp Pulse Resp BP Pulse Ox 98 F 88 20 155/95 100 07/19/19 10:00 07/19/19 10:00 07/19/19 12:00 07/19/19 10:00 07/19/19 12:00 <HenryMorgan castanonan - Last Filed: 07/20/19 08:37> Heart Score/ECG Review - History History: Moderately suspicious - Electrocardiogram EKG: Normal - Age Age: 45-65 - Risk Factors Risk Factors Heart Score: Yes Hx Hypercholesterolemia, Yes Hx Hypertension, Yes Hx Diabetes Based on the list above the patient has:: >/=3 risk factors or Hx atherosclerotic disease - Troponin Troponin: </= normal limit - Score Heart Score - Total: 4 <Christ Mccallum - Last Filed: 07/18/19 09:38> ED Treatment Course - LABORATORY CBC & Chemistry Diagram: 07/18/19 06:20 07/18/19 06:20 - ADDITIONAL ORDERS Additional order review: Laboratory Results 07/18/19 07/18/19 07/18/19 06:20 06:20 06:20 VBG pH 7.40 POC VBG pCO2 44.0 POC VBG pO2 < 49 H VBG HCO3 26.5 VBG O2 Sat (Jorge Luis) 70.2 VBG Base Excess 1.9 Sodium 135 L Potassium 4.1 Chloride 101 Carbon Dioxide 28 Anion Gap 6 L BUN 17.4 Creatinine 0.8 Est GFR (CKD-EPI)AfAm 98.24 Est GFR (CKD-EPI)NonAf 84.76 POC Glucometer Random Glucose 284 H Calcium 9.1 Magnesium 1.9 Total Bilirubin 0.2 AST 11 L ALT 20 Alkaline Phosphatase 92 Creatine Kinase 140 Troponin I 0.04 Total Protein 6.9 Albumin 3.8 07/18/19 06:20 VBG pH POC VBG pCO2 POC VBG pO2 VBG HCO3 VBG O2 Sat (Jorge Luis) VBG Base Excess Sodium Potassium Chloride Carbon Dioxide Anion Gap BUN Creatinine Est GFR (CKD-EPI)AfAm Est GFR (CKD-EPI)NonAf POC Glucometer 272 Random Glucose Calcium Magnesium Total Bilirubin AST ALT Alkaline Phosphatase Creatine Kinase Troponin I Total Protein Albumin 07/18/19 07/18/19 06:20 06:20 RBC 3.78 MCV 84.4 MCHC 34.0 RDW 13.4 MPV 9.5 Neutrophils % 46.8 D Lymphocytes % 40.8 H D Monocytes % 10.4 H Eosinophils % 1.6 D Basophils % 0.4 POC Glucometer 272 <Christ Mccallum - Last Filed: 07/18/19 09:38> - LABORATORY CBC & Chemistry Diagram: 07/19/19 06:30 07/19/19 06:30 - ADDITIONAL ORDERS Additional order review: 07/18/19 07/18/19 07/18/19 08:38 06:20 06:20 RBC 3.78 MCV 84.4 MCHC 34.0 RDW 13.4 MPV 9.5 Neutrophils % 46.8 D Lymphocytes % 40.8 H D Monocytes % 10.4 H Eosinophils % 1.6 D Basophils % 0.4 POC Glucometer 221 272 - Medications Given in the ED: ED Medications Discontinued Medications Generic Name Dose Route Start Last Admin Trade Name Freq PRN Reason Stop Dose Admin Acetaminophen 1,000 mg 07/18/19 08:42 07/18/19 09:02 Ofirmev Injection - IVPB 07/18/19 08:43 1,000 mg ONCE ONE Administration Acetaminophen 650 mg 07/18/19 19:36 07/18/19 20:07 Tylenol - PO 650 mg Q6H PRN Administration PAIN LEVEL 4 - 6 Al Hydroxide/Mg Hydroxide 30 ml 07/18/19 07:32 07/18/19 07:51 Mylanta Oral Suspension - PO 07/18/19 07:33 30 ml ONCE ONE Administration Aspirin 162 mg 07/18/19 08:42 07/18/19 09:02 Asa - PO 07/18/19 08:43 162 mg ONCE ONE Administration Aspirin 81 mg 07/19/19 10:00 07/19/19 13:23 Asa - PO 81 mg DAILY NEEL Administration Atorvastatin Calcium 80 mg 07/18/19 22:00 07/18/19 22:25 Lipitor - PO 80 mg HS NEEL Administration Heparin Sodium (Porcine) 5,000 unit 07/18/19 14:00 07/19/19 13:23 Heparin - SQ 5,000 unit TID NEEL Administration Famotidine/Sodium Chloride 20 mg in 50 mls @ 100 mls/hr 07/18/19 07:32 07:51 Pepcid 20 Mg Premixed Ivpb - IVPB 07/18/19 08:01 100 mls/hr ONCE ONE Administration Sodium Chloride 1,000 mls @ 75 mls/hr 07/18/19 11:15 07/19/19 13:23 Normal Saline - IV 75 mls/hr ASDIR NEEL Administration Insulin Detemir 40 units 07/18/19 11:11 07/18/19 12:05 Levemir Vial SQ 07/18/19 11:12 40 unit ONCE ONE Administration Insulin Detemir 40 units 07/19/19 07:00 07/19/19 06:44 Levemir Vial SQ Not Given 0700 NEEL Lisinopril 5 mg 07/19/19 10:00 07/19/19 13:23 Prinivil PO 5 mg DAILY NEEL Administration Nitroglycerin 0.4 mg 07/18/19 19:35 07/18/19 20:03 Nitrostat - SL 07/18/19 19:36 Not Given ONCE ONE Nitroglycerin 0.4 mg 07/18/19 19:37 07/18/19 19:42 Nitrostat - SL 07/18/19 19:38 0.4 mg ONCE ONE Administration Regadenoson 0.4 mg 07/19/19 11:15 07/19/19 12:03 Lexiscan IVPUSH 07/19/19 11:16 0.4 mg ONCE ONE Administration Sertraline HCl 50 mg 07/18/19 22:00 07/18/19 22:25 Zoloft - PO 50 mg HS NEEL Administration <Dick Figueroa - Last Filed: 07/20/19 08:37> Medical Decision Making - Medical Decision Making 07/18/19 08:00 54 yo female pmh HTN, HLD, elevated triglycerides, IDDM, depression presents to the ED with exertional CP, shoulder pain and headache. Pt states the pain began last night around 11 pm while resting, pain is made worse with walking up stairs , substernal with radiation to the back, no relieving factors and is described as severe. Pt admits to similar pain in the past, last echo in [facility] shows EF 66% in 2016. Pt also notes elevated blood sugar in the 500s at home last night, used insulin. Denies recent travel, calf tenderness, leg swelling SOB, abdominal bolivar, N/V/F/C, changes in bowel or bladder habits. Denies hx of cardiac disease vitals shows elevated HR 100 otherwise WNL DDX INLT: ACS, pancreatitis, DKA, PE, dissection (no BP difference, CXR no signs , pain description not consistent with dissection, no neurological symptoms) given maalox and pepcid and ASA HEART score of 4 Trops neg, EKG NSR without acute signs of ischemia BS 280s, trending down pt continues to complain of pain, will give tylenol admit for ACS r/o 07/18/19 09:38 Pt accepted for admission <Christ Mccallum - Last Filed: 07/18/19 09:38> Discharge - Discharge Information Problems reviewed: Yes - Admission Yes <Christ Mccallum - Last Filed: 07/18/19 09:38> <Dick Figueroa - Last Filed: 07/20/19 08:37> - Discharge Information Clinical Impression/Diagnosis: Ruled out for myocardial infarction Chest pain Qualifiers: Chest pain type: unspecified Qualified Code(s): R07.9 - Chest pain, unspecified Condition: Stable Disposition: HOME
[2019-07-18] MEDS ORDERED: MAG HYDROX/AL HYDROX/SIMETH 30 ML UNIT-DOSE CUP ONE (07:40)
[2019-07-18] MEDS ORDERED: ASPIRIN 81 MG CHEWABLE TABLETS PO ONE (08:42)
[2019-07-18] MEDS ORDERED: ACETAMINOPHEN 1000 MG/100 ML VIAL (NON FORMULARY) IVPB ONE (08:42)
[2019-07-18] MEDS ORDERED: ACETAMINOPHEN INJECTION 100 ML IVPB ONE (08:56)
[2019-07-18] MEDS ORDERED: ASPIRIN 81 MG CHEWABLE TABLETS ONE (08:56)
--- NOTE | 2019-07-18 09:22 | HP ---
CHIEF COMPLAINT: Chest Pain PCP: HISTORY OF PRESENT ILLNESS: Pt is a 54 y/o F with a significant past medical history of HTN, HLD, elevated triglycerides, IDDM, depression who presented to [facility] due to chest pain. Pt endorses chest pain commenced around 11 pm yesterday evening; pain is described as a "punching sensation" located in the mid chest, radiates toward her back, and is associated with numbness and tingling of her left arm. Pt states she feels as if shes "drowning." Pt states she sometimes experiences this type of pain in the past though less severe; states that past chest pain would resolve with jean marie serg. Per EMR, pt underwent a nuclear stress test in 2016 which revealed mild apical ischemia with an ejection fraction of 66%. Pt states that her blood glucose level was > 500 yesterday. States she took her usual insulin regimen and glucose afterwards was 23. Endorses vomiting, nausea, and shortness of breath. PMH as above SocialHx- Denies T/A/D SurgHx- 3 C-sections, Cholecstectomy, abdominoplasty ER course was notable for: (1) Trop negative (2) EKG with no ST-T wave abnormalities. Sinus rhythm at 89. (3) bgm--> 284 HOME MEDICATIONS: Home Medications Medication Instructions Recorded metFORMIN HCL [Metformin ER 1,000 mg PO BID 05/14/18 Gastric] Aspirin 81 mg PO DAILY 09/13/18 Atorvastatin Calcium 40 mg PO HS 09/13/18 Insulin Glargine,Hum.rec.anlog 30 unit SQ ASDIR 09/13/18 [Basaglar Kwikpen U-100] Insulin Lispro [Admelog Solostar] unit SQ ASDIR 09/13/18 Lisinopril [Prinivil] 5 mg PO DAILY 09/13/18 Ibuprofen 600 mg PO TID #30 tablet 05/25/19 Cyclobenzaprine HCl [Flexeril 10 10 mg PO BID PRN #10 tablet 06/02/19 mg] REVIEW OF SYSTEMS CONSTITUTIONAL: Absent: fever, chills, diaphoresis, generalized weakness, malaise, loss of appetite, weight change HEENT: Absent: rhinorrhea, nasal congestion, throat pain, throat swelling, difficulty swallowing, mouth swelling, ear pain, eye pain, visual changes CARDIOVASCULAR: PRESENT chest pain Absent: cough, shortness of breath, dyspnea with exertion, orthopnea, wheezing, stridor, hemoptysis GASTROINTESTINAL: Absent: abdominal pain, abdominal distension, nausea, vomiting, diarrhea, constipation, melena, hematochezia GENITOURINARY: Absent: dysuria, frequency, urgency, hesitancy, hematuria, flank pain, genital pain MUSCULOSKELETAL: Absent: myalgia, arthralgia, joint swelling, back pain, neck pain SKIN: Absent: rash, itching, pallor HEMATOLOGIC/IMMUNOLOGIC: Absent: easy bleeding, easy bruising, lymphadenopathy, frequent infections ENDOCRINE: Absent: unexplained weight gain, unexplained weight loss, heat intolerance, cold intolerance NEUROLOGIC: PRESENT: headache, paresthesias, dizziness PSYCHIATRIC: Absent: anxiety, depression, suicidal or homicidal ideation, hallucinations. PHYSICAL EXAMINATION Vital Signs - 24 hr 07/18/19 05:52 Temperature 97.9 F Pulse Rate 100 H Respiratory 16 Rate Blood Pressure 144/101 H O2 Sat by Pulse 100 Oximetry (%) GENERAL: Mild Distress HEAD: Normal with no signs of trauma. EYES: EOMI Sclera Clear EARS, NOSE, THROAT: Dry mucous membranes NECK: Supple LUNGS: CTA b/l HEART: RRR S1S2 no tenderness to chest wall. ABDOMEN: NDNT No guarding or rigidity MUSCULOSKELETAL: FROM LOWER EXTREMITIES: No CCE NEUROLOGICAL: Cranial nerves II-XII intact. Normal speech. Laboratory Results - last 24 hr 07/18/19 07/18/19 07/18/19 06:20 06:20 06:20 WBC 8.0 RBC 3.78 Hgb 10.9 Hct 31.9 L MCV 84.4 MCH 28.7 MCHC 34.0 RDW 13.4 Plt Count 201 MPV 9.5 Absolute Neuts (auto) 3.7 Neutrophils % 46.8 D Lymphocytes % 40.8 H D Monocytes % 10.4 H Eosinophils % 1.6 D Basophils % 0.4 Nucleated RBC % 0 VBG pH POC VBG pCO2 POC VBG pO2 VBG HCO3 VBG O2 Sat (Jorge Luis) VBG Base Excess Sodium Potassium Chloride Carbon Dioxide Anion Gap BUN Creatinine Est GFR (CKD-EPI)AfAm Est GFR (CKD-EPI)NonAf POC Glucometer 272 Random Glucose Calcium Magnesium Total Bilirubin AST ALT Alkaline Phosphatase Creatine Kinase 140 Troponin I 0.04 Total Protein Albumin Lipase 12/05/19 12/05/19 12/05/19 06:20 06:20 08:38 WBC RBC Hgb Hct MCV MCH MCHC RDW Plt Count MPV Absolute Neuts (auto) Neutrophils % Lymphocytes % Monocytes % Eosinophils % Basophils % Nucleated RBC % VBG pH 7.40 POC VBG pCO2 44.0 POC VBG pO2 < 49 H VBG HCO3 26.5 VBG O2 Sat (Jorge Luis) 70.2 VBG Base Excess 1.9 Sodium 135 L Potassium 4.1 Chloride 101 Carbon Dioxide 28 Anion Gap 6 L BUN 17.4 Creatinine 0.8 Est GFR (CKD-EPI)AfAm 98.24 Est GFR (CKD-EPI)NonAf 84.76 POC Glucometer 221 Random Glucose 284 H Calcium 9.1 Magnesium 1.9 Total Bilirubin 0.2 AST 11 L ALT 20 Alkaline Phosphatase 92 Creatine Kinase Troponin I Total Protein 6.9 Albumin 3.8 Lipase 449 H ASSESSMENT/PLAN: Pt is a 54 y/o F with a significant past medical history of HTN, HLD, elevated triglycerides, IDDM, depression who presented to [facility] due to chest pain. #Chest Pain. R/o ACS - Trop negative will trend. -EKG--Nl rhythm, nl intervals. No ST-T wave abnormalities. Will repeat EKG. -Echocardiogram to assess for wall motion abnormalities -Cardiology Consult -Tele monitoring -CXR clear #HTN Resume home Lisinopril 5 daily. Reconciled with [facility] in [place]. #IDDM -Spoke with patients pharmacy. Reconciled Insulin. Pt on 40 Units Rapid acting insulin (Lispro) BID and she is on long acting insulin- Glargine 50 HS -Will administer 40 Units Levemir now fro baseline coverage and place on sliding scale insulin. #Depression -Sertraline 50 HS. Reconciled #HLD -Continue Atorvastatin 40 HS. #FEN NS@75cc/hr Monitor Electrolytes Sodium Controlled Diet #DVT ppx: -HEP SQ TID #Dispo -Tele Obs Visit type - Emergency Visit Emergency Visit: Yes ED Registration Date: 07/18/19 Care time: The patient presented to the Emergency Department on the above date and was hospitalized for further evaluation of their emergent condition. - New Patient This patient is new to me today: Yes Date on this admission: 07/18/19 - Critical Care Critical Care patient: No ATTENDING PHYSICIAN STATEMENT I saw and evaluated the patient. I reviewed the resident's note and discussed the case with the resident. I agree with the resident's findings and plan as documented. SUBJECTIVE: OBJECTIVE: ASSESSMENT AND PLAN:
--- NOTE | 2019-07-18 10:44 | EKG ---
Test Reason : Blood Pressure : / mmHG Vent. Rate : 089 BPM Atrial Rate : 089 BPM P-R Int : 106 ms QRS Dur : 072 ms QT Int : 376 ms P-R-T Axes : 061 024 055 degrees QTc Int : 457 ms SINUS RHYTHM WITH SHORT LA OTHERWISE NORMAL ECG WHEN COMPARED WITH ECG OF 30-MAY-2018 16:18, NO SIGNIFICANT CHANGE WAS FOUND Confirmed by JACKELYN MARKHAM MD ([id number]) on 07/18/2019 10:44:14 AM Referred By: Confirmed By:JACKELYN MARKHAM MD
[2019-07-18] MEDS ORDERED: INSULIN (LEVEMIR) 100 UNITS/ML UNITS SQ ONE (11:11)
--- NOTE | 2019-07-18 11:55 | PN ---
Teaching Attending Note Name of Resident: Pool Layne ATTENDING PHYSICIAN STATEMENT I saw and evaluated the patient. I reviewed the resident's note and discussed the case with the resident. I agree with the resident's findings and plan as documented with exceptions below. SUBJECTIVE: 54 yof with PMhx of IDDM poorly controlled (reports 500s blood sugars at home), recently diagnosed HTN, HLD/hypertriglyceridemia, depression admitted with chest pain, shoulder pain, headaches, bodyaches, starting around 11 AM last night, reports blood sugars were 500s prior to admission. Also reports exertional chest pain and dyspnea, while climbing stairs, which has been more frequent lately. Currently points to lower sternal region, reporting pain, and some tenderness to touch. No complaints otherwise. OBJECTIVE: Vital Signs Period Temp Pulse Resp BP Sys/Jeronimo Pulse Ox Last 24 Hr 97.9 F 82-100 16-16 144-147/93-101 98-100 Intake & Output 07/15/19 07/16/19 07/17/19 07/18/19 23:59 23:59 23:59 23:59 Weight 144 lb GENERAL: Awake, alert, and fully oriented, in no acute distress. HEAD: Normal with no signs of trauma. EYES: Pupils equal, round and reactive to light, extraocular movements intact, sclera anicteric, conjunctiva clear. No lid lag. EARS, NOSE, THROAT: Ears normal, nares patent, oropharynx clear without exudates. Moist mucous membranes. NECK: Normal range of motion, supple , no JVD LUNGS: Breath sounds equal, clear to auscultation bilaterally. No wheezes, and no crackles. No accessory muscle use, tenderness on deep palpation lower sternal area, no swelling/erythema or crepitus noted. HEART: Regular rate and rhythm, normal S1 and S2, ABDOMEN: Soft, obese, no epigastric tenderness, nontender, not distended, normoactive bowel sounds, no guarding, no rebound, no masses. No hepatomegaly or splenomegaly appreciated. MUSCULOSKELETAL: Normal range of motion at all joints. No bony deformities or tenderness. No CVA tenderness. UPPER EXTREMITIES: 2+ pulses, warm, well-perfused. No cyanosis. No clubbing. No peripheral edema. LOWER EXTREMITIES: 2+ pulses, warm, well-perfused. No calf tenderness. No peripheral edema. NEUROLOGICAL: AAOx3, Cranial nerves II-XII intact. Normal speech. Normal gait. PSYCHIATRIC: Cooperative. Good eye contact. Appropriate mood and affect. SKIN: Warm, dry, normal turgor, no rashes or lesions noted, normal capillary refill. Home Medications Medication Instructions Recorded metFORMIN HCL [Metformin ER 1,000 mg PO BID 05/14/18 Gastric] Aspirin 81 mg PO DAILY 09/13/18 Atorvastatin Calcium 40 mg PO HS 09/13/18 Insulin Glargine,Hum.rec.anlog 50 unit SQ HS 09/13/18 [Basaglar Kwikpen U-100] Insulin Lispro [Admelog Solostar] 40 unit SQ BID 09/13/18 Lisinopril [Prinivil] 5 mg PO DAILY 09/13/18 Ibuprofen 600 mg PO TID #30 tablet 05/25/19 Cyclobenzaprine HCl [Flexeril 10 10 mg PO BID PRN #10 tablet 06/02/19 mg] Pioglitazone HCl [Actos] 45 mg PO DAILY 07/18/19 Prednisolone 1% Ophthalmic [Pred 1 drop OD DAILY 07/18/19 Forte 1% -] Sertraline HCl [Zoloft -] 50 mg PO HS 07/18/19 Active Medications Aspirin (Asa -) 81 mg PO DAILY [facility] Atorvastatin Calcium (Lipitor -) 40 mg PO HS [facility] Heparin Sodium (Porcine) (Heparin -) 5,000 unit SQ TID [facility] Sodium Chloride (Normal Saline -) 1,000 mls @ 75 mls/hr IV ASDIR [facility] Last Admin: 07/18/19 12:05 Dose: 75 mls/hr Lisinopril (Prinivil) 5 mg PO DAILY [facility] Sertraline HCl (Zoloft -) 50 mg PO HS [facility] Laboratory Results - last 24 hr 07/18/19 07/18/19 07/18/19 06:20 06:20 06:20 WBC 8.0 RBC 3.78 Hgb 10.9 Hct 31.9 L MCV 84.4 MCH 28.7 MCHC 34.0 RDW 13.4 Plt Count 201 MPV 9.5 Absolute Neuts (auto) 3.7 Neutrophils % 46.8 D Lymphocytes % 40.8 H D Monocytes % 10.4 H Eosinophils % 1.6 D Basophils % 0.4 Nucleated RBC % 0 VBG pH POC VBG pCO2 POC VBG pO2 VBG HCO3 VBG O2 Sat (Jorge Luis) VBG Base Excess Sodium Potassium Chloride Carbon Dioxide Anion Gap BUN Creatinine Est GFR (CKD-EPI)AfAm Est GFR (CKD-EPI)NonAf POC Glucometer 272 Random Glucose Calcium Magnesium Total Bilirubin AST ALT Alkaline Phosphatase Creatine Kinase 140 Troponin I 0.04 Total Protein Albumin Triglycerides Cholesterol Total LDL Cholesterol HDL Cholesterol Lipase Beta HCG, Quant Serum , Qual 07/18/19 07/18/19 07/18/19 06:20 06:20 08:38 WBC RBC Hgb Hct MCV MCH MCHC RDW Plt Count MPV Absolute Neuts (auto) Neutrophils % Lymphocytes % Monocytes % Eosinophils % Basophils % Nucleated RBC % VBG pH 7.40 POC VBG pCO2 44.0 POC VBG pO2 < 49 H VBG HCO3 26.5 VBG O2 Sat (Jorge Luis) 70.2 VBG Base Excess 1.9 Sodium 135 L Potassium 4.1 Chloride 101 Carbon Dioxide 28 Anion Gap 6 L BUN 17.4 Creatinine 0.8 Est GFR (CKD-EPI)AfAm 98.24 Est GFR (CKD-EPI)NonAf 84.76 POC Glucometer 221 Random Glucose 284 H Calcium 9.1 Magnesium 1.9 Total Bilirubin 0.2 AST 11 L ALT 20 Alkaline Phosphatase 92 Creatine Kinase Troponin I Total Protein 6.9 Albumin 3.8 Triglycerides 185 H Cholesterol 210 H Total LDL Cholesterol 148 H HDL Cholesterol 34 L Lipase 449 H Beta HCG, Quant Cancelled Serum , Qual 07/18/19 11:00 WBC RBC Hgb Hct MCV MCH MCHC RDW Plt Count MPV Absolute Neuts (auto) Neutrophils % Lymphocytes % Monocytes % Eosinophils % Basophils % Nucleated RBC % VBG pH POC VBG pCO2 POC VBG pO2 VBG HCO3 VBG O2 Sat (Jorge Luis) VBG Base Excess Sodium Potassium Chloride Carbon Dioxide Anion Gap BUN Creatinine Est GFR (CKD-EPI)AfAm Est GFR (CKD-EPI)NonAf POC Glucometer Random Glucose Calcium Magnesium Total Bilirubin AST ALT Alkaline Phosphatase Creatine Kinase Troponin I Total Protein Albumin Triglycerides Cholesterol Total LDL Cholesterol HDL Cholesterol Lipase Beta HCG, Quant Serum , Qual Negative EKG NSR, no acute ST-T changes CXR no acute process ASSESSMENT AND PLAN: 54 yof with PMhx of IDDM poorly controlled (reports 500s blood sugars at home), recently diagnosed HTN, HLD/hypertriglyceridemia, depression admitted with chest pain, reports uncontrolled blood sugars. -Chest pain, r/o ACS -Poorly controlled IDDM -Elevated lipase, low susicion for pancreatitis -HTN -HLD/Hypertriglyceridemia -Depression Plan: Prior abnormal stress test in 2016 with small area of apical ischemia. Exertional symtpoms with progressive escalation. Pos risk factors. Will admit to telemetry, r/o ACS. 2D echo. Stress test if ACS ruled out. Cardiology consult Lipid panel noted, statin. ASA. Continue ACEi. ?not on beta laura. Will start post stress test based on hemodynamics. Check A1c. levemir 40 units daily, ISS and resume premeal lispro based on blood glucose readings, concern for non compliance. Hold Actos/Metformin for now. Lipase noted, no epigastric tenderness or GI symptoms. Low clinical suspicion for pancreatitis, Will continue PO as tolerated and monitor clinically. Continue sertraline. DVTPPX lovenox Dispo pending above w/u and clinical improvement. Plan discussed with patient in detail, all questions answered total admit time 65 min.
[2019-07-18] MEDS: SODIUM CHLORIDE 1,000 ML IV SCH (12:05)
[2019-07-18] MEDS ORDERED: HEPARIN NA (PORCINE) 5,000 UNITS/ML 1ML VIAL ONE (14:22)
[2019-07-18] MEDS: HEPARIN NA (PORCINE) 5,000 UNITS/ML 1ML VIAL SQ SCH ×2 (14:24→22:25)
--- NOTE | 2019-07-18 14:34 | ECHO ---
Name: CHRISTIAN PILLAI, MARY Exam:Adult Echocardiogram Study Date: 07/18/2019 12:30 PM Age: 54 yrs Height: 60 in Weight: 144 lb BSA: 1.6 m2 MMode/2D Measurements & Calculations IVSd: 0.92 cm Ao root diam: 2.6 cm LVIDd: 4.3 cm LA dimension: 3.1 cm LVIDs: 2.7 cm LVPWd: 0.94 cm LVPWs: 1.3 cm EDV(Teich): 82.3 ml ESV(Teich): 27.8 ml RV S Jorge: 9.4 cm/sec Doppler Measurements & Calculations MV E max jorge: 78.6 cm/sec Ao V2 max: 104.2 cm/sec MV A max jorge: 62.6 cm/sec Ao max P.4 mmHg MV E/A: 1.3 MV dec time: 0.16 sec LV V1 max P.4 mmHg PA V2 max: 88.0 cm/sec LV V1 max: 77.6 cm/sec PA max P.1 mmHg Med Peak E' Jorge: 5.2 cm/sec Med E/e': 15.1 Lat Peak E' Jorge: 5.7 cm/sec Lat E/e': 13.9 Procedure A complete two-dimensional transthoracic echocardiogram was performed (2D, M-mode, Doppler and color flow Doppler). Left Ventricle The left ventricular size, thickness and function are normal. The left ventricular ejection fraction is normal. Ejection Fraction = 60-65%. The left ventricular wall motion is normal. Right Ventricle The right ventricle is normal in size and function. Atria Normal left and right atrial size and function. Mitral Valve There is no mitral regurgitation noted. Tricuspid Valve There is trace tricuspid regurgitation. There was insufficient TR detected to calculate RV systolic p ressure. Aortic Valve No hemodynamically significant valvular aortic stenosis. No aortic regurgitation is present. Pulmonic Valve There is no pulmonic valvular regurgitation. Great Vessels The aortic root is normal size. Pericardium/Pleura There is no pericardial effusion. Interpretation Summary The left ventricular size, thickness and function are normal The right ventricle is normal in size and function. There is trace tricuspid regurgitation. MD Markus Braden 07/18/2019 02:33 PM
--- NOTE | 2019-07-18 15:35 | CON.CARD ---
Consult Consult Specialty:: Cardiology Referred by:: Medicine Reason for Consultation:: chest pain - History of Present Illness Chief Complaint: chest pain, headache History of Present Illness: 54F h/o HTN, HLD, DM p/w chest pain. Started night prior to admission felt a punching in her chest moving to her back, stomach and there is numbness in her left arm. Worse also with deep breathing and position changes. Has had hyperglycemia, per pt yesterday fingerstick >500. Currently complains of chest pain worse with movement, headache, itching. No palps, dizziness, dyspnea, edema. - Past Medical History ...: No Endocrine: Yes: Diabetes Mellitus - Past Surgical History Past Surgical History: Yes: Cholecystectomy - Alcohol/Substance Use Hx Alcohol Use: No History of Substance Use: reports: None - Smoking History Smoking history: Never smoked Have you smoked in the past 12 months: No - Social History Usual Living Arrangement: With Spouse ADL: Independent Home Medications - Allergies Allergies/Adverse Reactions: Allergies Allergy/AdvReac Type Severity Reaction Status Date / Time No Known Allergies Allergy Verified 07/18/19 05:52 - Home Medications Home Medications: Ambulatory Orders metFORMIN HCL [Metformin ER Gastric] 1,000 mg PO BID 05/14/18 Aspirin 81 mg PO DAILY 09/13/18 Atorvastatin Calcium 40 mg PO HS 09/13/18 Insulin Glargine,Hum.rec.anlog [Basaglar Kwikpen U-100] 50 unit SQ HS 09/13/18 Insulin Lispro [Admelog Solostar] 40 unit SQ BID 09/13/18 Lisinopril [Prinivil] 5 mg PO DAILY 09/13/18 Ibuprofen 600 mg PO TID #30 tablet 05/25/19 Cyclobenzaprine HCl [Flexeril 10 mg] 10 mg PO BID PRN #10 tablet 06/02/19 Pioglitazone HCl [Actos] 45 mg PO DAILY 07/18/19 Prednisolone 1% Ophthalmic [Pred Forte 1% -] 1 drop OD DAILY 07/18/19 Sertraline HCl [Zoloft -] 50 mg PO HS 07/18/19 Family Medical History Family History: Unremarkable Review of Systems - Review of Systems Constitutional: reports: No Symptoms Eyes: reports: No Symptoms HENT: reports: No Symptoms Neck: reports: No Symptoms Cardiovascular: reports: Chest Pain Respiratory: reports: No Symptoms Gastrointestinal: reports: No Symptoms Genitourinary: reports: No Symptoms Musculoskeletal: reports: Back Pain Integumentary: reports: No Symptoms Neurological: reports: Headache Endocrine: reports: No Symptoms Hematology/Lymphatic: reports: No Symptoms Psychiatric: reports: No Symptoms Vital Signs: Vital Signs Temperature 98 F 07/18/19 14:54 Pulse Rate 70 07/18/19 14:54 Respiratory Rate 18 07/18/19 14:54 Blood Pressure 144/94 07/18/19 14:54 O2 Sat by Pulse Oximetry (%) 99 07/18/19 13:48 Constitutional: Yes: No Distress, Calm Eyes: Yes: Conjunctiva Clear, EOM Intact HENT: Yes: Atraumatic, Normocephalic Neck: Yes: Supple, Trachea Midline Respiratory: Yes: Regular, CTA Bilaterally Gastrointestinal: Yes: Normal Bowel Sounds, Soft Cardiovascular: Yes: Regular Rate and Rhythm JVD: No Heart Sounds: Yes: S1, S2 Extremities: No: Cold Edema: No Integumentary: No: Jaundice Neurological: Yes: Alert, Oriented Psychiatric: No: Agitated - Other Data Labs, Other Data: CBC, BMP 07/18/19 06:20 07/18/19 06:20 Troponin, BNP 07/18/19 07/18/19 06:20 12:00 Troponin I 0.04 0.04 Troponin, BNP 07/18/19 07/18/19 06:20 12:00 Troponin I 0.04 0.04 Assessment/Plan EKG: sinus, short PA, no ischemic changes mibi 2016 mild apical ischemia, nl LV function echo 07/2019 nl LV/RV function, trace TR chest pain - history more consistent with MSK, however multiple risk factors for CAD including poorly controlled DM - prior stress test 2016 with apical ischemia - EKG no ischemic changes, trop neg x 2 - less likely ACS - echo unremarkable - repeat mibi ordered DM - not well controlled - manage per primary HLD - lipid panel reviewed,not well controlled - inc atorvastatin to 80 mg daily HTN - cont current meds
[2019-07-18] MEDS ORDERED: NITROGLYCERIN SUBLINGUAL 1/150 0.4 MG TAB SL ONE ×2 (19:35→19:37)
[2019-07-18] MEDS ORDERED: ACETAMINOPHEN 325 MG TABLET (FP) PO PRN (19:36)
[2019-07-18] MEDS ORDERED: NITROGLYCERIN SUBLINGUAL 1/150 0.4 MG TAB ONE (19:37)
[2019-07-18] MEDS ORDERED: SERTRALINE HCL 50 MG TABLET (FP) PO SCH (22:00)
[2019-07-18] MEDS ORDERED: INSULIN (LEVEMIR) 100 UNITS/ML UNITS SQ SCH (22:00)
[2019-07-18] MEDS ORDERED: ATORVASTATIN CA 40 MG TABLET (FP) PO SCH ×2 (22:00)
[2019-07-19] MEDS: HEPARIN NA (PORCINE) 5,000 UNITS/ML 1ML VIAL SQ SCH ×2 (06:44→13:23)
[2019-07-19 06:51] LABS: BASO % 0.8 % (0-2.0); EOS % 2.8 % (0-4.5); HEMATOCRIT 33.2 % (32.4-45.2); HEMOGLOBIN 11.3 GM/dL (10.7-15.3); LYMPH % 38.3 % (8-40); MCH 28.9 pg (25.7-33.7); MCHC 34.1 g/dl (32.0-36.0); MEAN CELL VOLUME 84.7 fl (80-96); MEAN PLT VOLUME 9.6 fl (7.5-11.1); MONO % 9.4 % (3.8-10.2); NEUT % 48.7 % (42.8-82.8); PLATELET COUNT 221 K/MM3 (134-434); RBC 3.92 M/mm3 (3.60-5.2); RDW 13.5 % (11.6-15.6); WHITE BLOOD COUNT 6.7 K/mm3 (4.0-10.0)
[2019-07-19] MEDS ORDERED: INSULIN (LEVEMIR) 100 UNITS/ML UNITS SQ SCH (07:00)
[2019-07-19 07:19] LABS: ALBUMIN 3.6 g/dl (3.4-5.0); BILIRUBIN,TOTAL 0.3 mg/dL (0.2-1); BLOOD UREA NITROGEN 13.8 mg/dL (7-18); CALCIUM 9.4 mg/dL (8.5-10.1); CREATININE 0.7 mg/dL (0.55-1.3); MAGNESIUM 2.1 mg/dL (1.8-2.4); PHOSPHOROUS 3.8 mg/dL (2.5-4.9); POTASSIUM 4.6 mmol/L (3.5-5.1); TOT PROT 6.9 g/dl (6.4-8.2)
[2019-07-19 08:02] LABS: INR 0.97 (0.83-1.09); PROTHROMBIN TIME (PATIENT) 11.5 SEC (9.7-13.0)
[2019-07-19 08:05] LABS: ACTIVATED PTT 32.3 SECONDS (25.2-36.5)
[2019-07-19] MEDS ORDERED: LISINOPRIL 5 MG TABLET (FP) PO SCH (10:00)
[2019-07-19] MEDS ORDERED: ASPIRIN 81 MG CHEWABLE TABLETS PO SCH (10:00)
--- NOTE | 2019-07-19 11:14 | PN ---
Progress Note, Physician Chief Complaint: Stress test done History of Present Illness: atypical CP - Current Medication List Current Medications: Active Medications Acetaminophen (Tylenol -) 650 mg PO Q6H PRN PRN Reason: PAIN LEVEL 4 - 6 Last Admin: 07/18/19 20:07 Dose: 650 mg Aspirin (Asa -) 81 mg PO DAILY [facility] Atorvastatin Calcium (Lipitor -) 80 mg PO HS [facility] Last Admin: 07/18/19 22:25 Dose: 80 mg Heparin Sodium (Porcine) (Heparin -) 5,000 unit SQ TID [facility] Last Admin: 07/19/19 06:44 Dose: 5,000 unit Sodium Chloride (Normal Saline -) 1,000 mls @ 75 mls/hr IV ASDIR [facility] Last Admin: 07/18/19 12:05 Dose: 75 mls/hr Insulin Detemir (Levemir Vial) 40 units SQ 0700 [facility] Last Admin: 07/19/19 06:44 Dose: Not Given Lisinopril (Prinivil) 5 mg PO DAILY [facility] Regadenoson (Lexiscan) 0.4 mg IVPUSH ONCE ONE Stop: 07/19/19 11:16 Sertraline HCl (Zoloft -) 50 mg PO HS [facility] Last Admin: 07/18/19 22:25 Dose: 50 mg - Objective Vital Signs: Vital Signs Temperature 97.6 F 07/19/19 06:30 Pulse Rate 82 07/19/19 06:30 Respiratory Rate 20 07/19/19 06:30 Blood Pressure 161/98 07/19/19 06:30 O2 Sat by Pulse Oximetry (%) 100 07/19/19 04:00 Constitutional: Yes: No Distress, Calm Cardiovascular: Yes: Regular Rate and Rhythm Respiratory: Yes: CTA Bilaterally Gastrointestinal: Yes: Soft Edema: No Peripheral Pulses WNL: Yes Neurological: Yes: Alert, Oriented Labs: CBC, BMP 07/19/19 06:30 07/19/19 06:30 INR, PTT INR 0.97 (0.83-1.09) 07/19/19 06:30 Laboratory Tests 07/18/19 07/18/19 07/18/19 06:20 12:00 21:44 WBC Hgb Plt Count Potassium Creatinine Troponin I 0.04 0.04 0.04 07/19/19 07/19/19 06:30 06:30 WBC 6.7 Hgb 11.3 Plt Count 221 Potassium 4.6 Creatinine 0.7 Troponin I Assessment/Plan Assessment/Plan EKG: sinus, short OR, no ischemic changes mibi 2015 mild apical ischemia, nl LV function echo 07/2019 nl LV/RV function, trace TR chest pain - history more consistent with MSK, however multiple risk factors for CAD including poorly controlled DM - prior stress test 2015 with apical ischemia - EKG no ischemic changes, trop neg x 3- less likely ACS - echo unremarkable - repeat mibi today no ischemia, no further inpatient w/u planned at this time DM - not well controlled - manage per primary HLD - lipid panel reviewed,not well controlled - inc atorvastatin to 80 mg daily HTN - cont current meds, close outpt f/u for BP check and med titration to assure reaching goal of < 140/90
[2019-07-19] MEDS ORDERED: REGADENOSON 0.4 MG/5 ML PRE-FILLED SYRINGE IVPUSH ONE ×2 (11:15→11:16)
--- NOTE | 2019-07-19 11:44 | EKG ---
Test Reason : Blood Pressure : / mmHG Vent. Rate : 080 BPM Atrial Rate : 080 BPM P-R Int : 110 ms QRS Dur : 074 ms QT Int : 404 ms P-R-T Axes : 038 -01 041 degrees QTc Int : 465 ms SINUS RHYTHM WITH SHORT AK NONSPECIFIC ST ABNORMALITY WHEN COMPARED WITH ECG OF 18-JUL-2019 11:03, NO SIGNIFICANT CHANGE WAS FOUND Confirmed by BETZY ROGERS MD ([id number]) on 07/19/2019 11:44:28 AM Referred By: Confirmed By:BETZY ROGERS MD
--- NOTE | 2019-07-19 11:45 | EKG ---
Test Reason : Blood Pressure : / mmHG Vent. Rate : 081 BPM Atrial Rate : 081 BPM P-R Int : 128 ms QRS Dur : 070 ms QT Int : 398 ms P-R-T Axes : 018 -03 038 degrees QTc Int : 462 ms NORMAL SINUS RHYTHM WHEN COMPARED WITH ECG OF 18-JUL-2019 05:56, NONSPECIFIC T WAVE ABNORMALITY NOW EVIDENT IN ANTERIOR LEADS Confirmed by BETZY ROGERS MD ([id number]) on 07/19/2019 11:45:31 AM Referred By: Confirmed By:BETZY ROGERS MD
[2019-07-19 13:02] VITALS: BP 155/95; PULSE 88; TEMP 98
[2019-07-19] MEDS: SODIUM CHLORIDE 1,000 ML IV SCH (13:23)
--- NOTE | 2019-07-19 16:10 | PN ---
Teaching Attending Note Name of Resident: Boby Mckeon ATTENDING PHYSICIAN STATEMENT I saw and evaluated the patient. I reviewed the resident's note and discussed the case with the resident. I agree with the resident's findings and plan as documented. SUBJECTIVE: No more episodes of CP. OBJECTIVE: Afebrile, Hemodynamically Stable. Last Vital Signs Temp Pulse Resp BP Pulse Ox 98 F 88 20 155/95 100 07/19/19 10:00 07/19/19 10:00 07/19/19 12:00 07/19/19 10:00 07/19/19 12:00 HEENT - Atraumatic, Normocephalic. Heart- S1, S2, RRR Lungs - clear to auscultation Abdomen - Soft, non-tender. Bowel Sounds normal. Extremities - no edema, no calf tenderness. Laboratory Results - last 24 hr 07/18/19 07/18/19 07/18/19 17:32 21:44 22:29 WBC RBC Hgb Hct MCV MCH MCHC RDW Plt Count MPV Absolute Neuts (auto) Neutrophils % Lymphocytes % Monocytes % Eosinophils % Basophils % Nucleated RBC % PT with INR INR PTT (Actin FS) Sodium Potassium Chloride Carbon Dioxide Anion Gap BUN Creatinine Est GFR (CKD-EPI)AfAm Est GFR (CKD-EPI)NonAf POC Glucometer 213 217 Random Glucose Calcium Phosphorus Magnesium Total Bilirubin AST ALT Alkaline Phosphatase Troponin I 0.04 Total Protein Albumin 07/19/19 07/19/19 07/19/19 06:30 06:30 06:30 WBC 6.7 RBC 3.92 Hgb 11.3 Hct 33.2 MCV 84.7 MCH 28.9 MCHC 34.1 RDW 13.5 Plt Count 221 MPV 9.6 Absolute Neuts (auto) 3.3 Neutrophils % 48.7 Lymphocytes % 38.3 Monocytes % 9.4 Eosinophils % 2.8 Basophils % 0.8 Nucleated RBC % 0 PT with INR 11.50 INR 0.97 PTT (Actin FS) 32.3 Sodium 141 Potassium 4.6 Chloride 106 Carbon Dioxide 28 Anion Gap 7 L BUN 13.8 Creatinine 0.7 Est GFR (CKD-EPI)AfAm 115.45 Est GFR (CKD-EPI)NonAf 99.62 POC Glucometer Random Glucose 158 H Calcium 9.4 Phosphorus 3.8 Magnesium 2.1 Total Bilirubin 0.3 AST 16 ALT 19 Alkaline Phosphatase 92 Troponin I Total Protein 6.9 Albumin 3.6 07/19/19 07/19/19 06:43 07:46 WBC RBC Hgb Hct MCV MCH MCHC RDW Plt Count MPV Absolute Neuts (auto) Neutrophils % Lymphocytes % Monocytes % Eosinophils % Basophils % Nucleated RBC % PT with INR INR PTT (Actin FS) Sodium Potassium Chloride Carbon Dioxide Anion Gap BUN Creatinine Est GFR (CKD-EPI)AfAm Est GFR (CKD-EPI)NonAf POC Glucometer 147 170 Random Glucose Calcium Phosphorus Magnesium Total Bilirubin AST ALT Alkaline Phosphatase Troponin I Total Protein Albumin Home Medications Medication Instructions Recorded metFORMIN HCL [Metformin ER 1,000 mg PO BID 05/14/18 Gastric] Aspirin 81 mg PO DAILY 09/13/18 Insulin Glargine,Hum.rec.anlog 50 unit SQ HS 09/13/18 [Basaglar Kwikpen U-100] Insulin Lispro [Admelog Solostar] 40 unit SQ BID 09/13/18 Lisinopril [Prinivil] 5 mg PO DAILY 09/13/18 Ibuprofen 600 mg PO TID #30 tablet 05/25/19 Cyclobenzaprine HCl [Flexeril 10 10 mg PO BID PRN #10 tablet 06/02/19 mg] Pioglitazone HCl [Actos] 45 mg PO DAILY 07/18/19 Prednisolone 1% Ophthalmic [Pred 1 drop OD DAILY 07/18/19 Forte 1% -] Sertraline HCl [Zoloft -] 50 mg PO HS 07/18/19 Atorvastatin Ca [Lipitor] 80 mg PO HS #30 tab 07/19/19 Atorvastatin Ca [Lipitor] 80 mg PO HS #60 tablet 07/19/19 ASSESSMENT/PLAN: 54 year old female with poorly controlled DM 2, recently diagnosed HTN, HLD, Depression, admitted with CP, negative troponin/ECG, seen by Cardiology, had stress test which was negative. She remained medically stable and optimized for discharge. Echo - normal LVEF, trace TR. Hyperlipidemia noted on labwork and started on lipitor 80mg daily by Cardio. Outpatient LFTs in 3 weeks. outpatient Cardiology follow up.
--- NOTE | 2019-07-19 18:04 | DS ---
Physical Exam: SUBJECTIVE: Patient seen and examined at the bedside. Patient stated she feels well and is eager to go home after her stress test. Denied any further chest pain, shortness of breath, abd pain, n/v/c/d, fever, chills, arm pain, back pain , numbness, tingling, weakness, headaches. OBJECTIVE: Vital Signs Period Temp Pulse Resp BP Sys/Jeronimo Pulse Ox Last 24 Hr 97.6 F-99.1 F 70-88 20-20 142-161/86-98 100-100 PHYSICAL EXAM GENERAL: The patient is awake, alert, and fully oriented, in no acute distress. HEAD: Normal with no signs of trauma. EYES: PERRL, extraocular movements intact, sclera anicteric, conjunctiva clear. ENT: Ooropharynx clear without exudates, moist mucous membranes. NECK: Trachea midline, full range of motion, supple. LUNGS: Breath sounds equal, clear to auscultation bilaterally, no wheezes, no crackles, no accessory muscle use. HEART: Regular rate and rhythm, S1, S2 without murmur, rub. ABDOMEN: Soft, nontender, nondistended, normoactive bowel sounds, no guarding, no rebound, no masses. EXTREMITIES: 2+ pulses, warm, well-perfused, no edema. NEUROLOGICAL: Cranial nerves II through XII grossly intact. 5/5 muscle strength upper and lower extremities bilaterally. PSYCH: Normal mood, normal affect. SKIN: Warm, dry, normal turgor, no rashes or lesions noted. LABS Laboratory Results - last 24 hr 07/18/19 07/18/19 07/19/19 21:44 22:29 06:30 WBC 6.7 RBC 3.92 Hgb 11.3 Hct 33.2 MCV 84.7 MCH 28.9 MCHC 34.1 RDW 13.5 Plt Count 221 MPV 9.6 Absolute Neuts (auto) 3.3 Neutrophils % 48.7 Lymphocytes % 38.3 Monocytes % 9.4 Eosinophils % 2.8 Basophils % 0.8 Nucleated RBC % 0 PT with INR INR PTT (Actin FS) Sodium Potassium Chloride Carbon Dioxide Anion Gap BUN Creatinine Est GFR (CKD-EPI)AfAm Est GFR (CKD-EPI)NonAf POC Glucometer 217 Random Glucose Calcium Phosphorus Magnesium Total Bilirubin AST ALT Alkaline Phosphatase Troponin I 0.04 Total Protein Albumin 07/19/19 07/19/19 07/19/19 06:30 06:30 06:43 WBC RBC Hgb Hct MCV MCH MCHC RDW Plt Count MPV Absolute Neuts (auto) Neutrophils % Lymphocytes % Monocytes % Eosinophils % Basophils % Nucleated RBC % PT with INR 11.50 INR 0.97 PTT (Actin FS) 32.3 Sodium 141 Potassium 4.6 Chloride 106 Carbon Dioxide 28 Anion Gap 7 L BUN 13.8 Creatinine 0.7 Est GFR (CKD-EPI)AfAm 115.45 Est GFR (CKD-EPI)NonAf 99.62 POC Glucometer 147 Random Glucose 158 H Calcium 9.4 Phosphorus 3.8 Magnesium 2.1 Total Bilirubin 0.3 AST 16 ALT 19 Alkaline Phosphatase 92 Troponin I Total Protein 6.9 Albumin 3.6 07/19/19 07:46 WBC RBC Hgb Hct MCV MCH MCHC RDW Plt Count MPV Absolute Neuts (auto) Neutrophils % Lymphocytes % Monocytes % Eosinophils % Basophils % Nucleated RBC % PT with INR INR PTT (Actin FS) Sodium Potassium Chloride Carbon Dioxide Anion Gap BUN Creatinine Est GFR (CKD-EPI)AfAm Est GFR (CKD-EPI)NonAf POC Glucometer 170 Random Glucose Calcium Phosphorus Magnesium Total Bilirubin AST ALT Alkaline Phosphatase Troponin I Total Protein Albumin HOSPITAL COURSE: Beatriz Sexton a 54 year old female with a significant past medical history of HTN, HLD, elevated triglycerides, IDDM, depression who presented to [facility] due to chest pain. 3 troponins done for the patient were negative. EKG showed normal sinus rhythm with no ST wave abnormalities. Echocardiogram showed normal LV size, thickness, function, RV normal, trace tricuspid regurg. Patient was seen by cardiology who recommended a stress test. Stress test was perfomed and did not show any ischemic changes. Patient was advised by cardiology to increase statin dose to 80mg daily. Patient to have repeat LFTs performed in 3 weeks. While hospitalized, patient had elevated blood sugars. Was advised to return to her primary care doctor to have adjustment of her diabetes medications. Patient is to follow up with her primary care doctor and supervisor paper testing. Patient was spoken to about the plan, was in agreement, and reiterated the plan. Patient was discharged in stable condition. Date of Admission:07/18/19 Date of Discharge: 07/19/19 Minutes to complete discharge: 35 Discharge Summary Problems reviewed: Yes Reason For Visit: RULED OUT FOR MYOCARDIAL INFARCTION Condition: Stable - Instructions Diet, Activity, Other Instructions: You were admitted for because you had chest pain. You had previous stress test in 2016 which showed some abnormalities so you had a repeat of the stress test on this admission. You had blood work that showed that all of the enzymes ( markers in your blood) for your heart were normal. You had an echocardiogram ( ultrasound of the heart) which showed normal size, function, and thickness of your heart with some trace regurgitation of one of the valves of your heart. You were monitored on the cardiac (heart) floor. You had a stress test performed which showed a normally functioning heart with no evidence of blockage in the arteries of the heart. You were seen by the supervisor paper testing (heart doctor) who recommended that you increase your cholesterol medication and follow up with the supervisor paper testing in the outpatient clinic. MEDICATIONS Please START taking Lipitor 80mg daily. Continue to take all of your home medications as prescribed. REFERRALS Please follow up with your primary care doctor, Dr. Sandra Love, within 1 week. Please follow up with the supervisor paper testing, Dr. Lorne Falk, within 1 week. SPECIAL INSTRUCTIONS While you were admitted, you had very high blood sugars. You are advised to follow a diabetic diet and follow up with your primary care doctor in order to best manage you diabetes. Please follow up in your primary care office for liver function tests in 3 weeks. If you have any symptoms of chest pain, shortness of breath, numbness, tingling , inability to perform any activities, fevers, or any other general feelings of unwellness, call 911 or go to your nearest emergency room. Referrals: Aidee Roe MD [Primary Care Provider] - Lorne Falk MD [Staff Physician] - Disposition: HOME - Home Medications Comprehensive Discharge Medication List: Ambulatory Orders metFORMIN HCL [Metformin ER Gastric] 1,000 mg PO BID 05/14/18 Aspirin 81 mg PO DAILY 09/13/18 Insulin Glargine,Hum.rec.anlog [Basaglar Kwikpen U-100] 50 unit SQ HS 09/13/18 Insulin Lispro [Admelog Solostar] 40 unit SQ BID 09/13/18 Lisinopril [Prinivil] 5 mg PO DAILY 09/13/18 Ibuprofen 600 mg PO TID #30 tablet 05/25/19 Cyclobenzaprine HCl [Flexeril 10 mg] 10 mg PO BID PRN #10 tablet 06/02/19 Pioglitazone HCl [Actos] 45 mg PO DAILY 07/18/19 Prednisolone 1% Ophthalmic [Pred Forte 1% -] 1 drop OD DAILY 07/18/19 Sertraline HCl [Zoloft -] 50 mg PO HS 07/18/19 Atorvastatin Ca [Lipitor] 80 mg PO HS #30 tab 07/19/19 Atorvastatin Ca [Lipitor] 80 mg PO HS #60 tablet 07/19/19 Problem List - Problems (1) Diabetes Code(s): E11.9 - TYPE 2 DIABETES MELLITUS WITHOUT COMPLICATIONS (2) Hyperglycemia Code(s): R73.9 - HYPERGLYCEMIA, UNSPECIFIED (3) Hyperlipidemia Code(s): E78.5 - HYPERLIPIDEMIA, UNSPECIFIED (4) Ruled out for myocardial infarction Code(s): Z03.89 - ENCNTR FOR OBS FOR OTH SUSPECTED DISEASES AND COND RULED OUT This patient is new to me today: Yes Date on this admission: 07/19/19 Emergency Visit: Yes ED Registration Date: 07/18/19 Care time: The patient presented to the Emergency Department on the above date and was hospitalized for further evaluation of their emergent condition. Critical Care patient: No - Discharge Referral Referred to [facility] Med P.C.: No
--- NOTE | 2019-07-22 01:07 | EKG ---
Test Reason : Blood Pressure : / mmHG Vent. Rate : 081 BPM Atrial Rate : 081 BPM P-R Int : 114 ms QRS Dur : 072 ms QT Int : 396 ms P-R-T Axes : 044 010 033 degrees QTc Int : 460 ms NORMAL SINUS RHYTHM NORMAL ECG WHEN COMPARED WITH ECG OF 18-JUL-2019 11:25, NO SIGNIFICANT CHANGE WAS FOUND Confirmed by ABIGAIL CLEANING MD ([id number]) on 07/22/2019 1:06:58 AM Referred By: Confirmed By:ABIGAIL CLEANING MD
== END 2019-07-19 14:47 | disposition home or self-care (01) ==
LOC: JER 05:42 → JERBED 09:17 → J4W 14:45
PROVIDERS: ADMIT Hospitalist
PROC: 3E013VG Introduction of Insulin into Subcutaneous Tissue, Percutaneous Approach (ICD-10-PCS; principal; 2019-07-18)
PROC: 3E013GC Introduction of Other Therapeutic Substance into Subcutaneous Tissue, Percutaneous Approach (ICD-10-PCS; 2019-07-18)
PROC: 3E033GC Introduction of Other Therapeutic Substance into Peripheral Vein, Percutaneous Approach (ICD-10-PCS; 2019-07-18)
PROC: 3E033GC Introduction of Other Therapeutic Substance into Peripheral Vein, Percutaneous Approach (ICD-10-PCS; 2019-07-18)
PROC: 3E033GC Introduction of Other Therapeutic Substance into Peripheral Vein, Percutaneous Approach (ICD-10-PCS; 2019-07-18)
DX: Z03.89 Encounter for observation for other suspected diseases and conditions ruled out (principal); R07.9 Chest pain, unspecified; I10 Essential (primary) hypertension; E78.5 Hyperlipidemia, unspecified; E78.1 Pure hyperglyceridemia; E11.65 Type 2 diabetes mellitus with hyperglycemia; Z79.4 Long term (current) use of insulin; F32.9 Major depressive disorder, single episode, unspecified; Z90.49 Acquired absence of other specified parts of digestive tract; Z98.890 Other specified postprocedural states
CPT/HCPCS: 36415; 71046-TC-FY; 78452-TC; 80053; 80061; 82550; 82803; 82962; 83690; 83721; 83735; 84100; 84484; 84703; 85025; 85610; 85730; 93005; 93010; 93017; 93306-TC; 99285-25; A9502; G0378; J0131; J1644; J2785; J7030

== ENCOUNTER 2020-08-11 10:28 | Observation (INO) | payer OTHER ==
[2020-08-11 10:38] VITALS: BMI 25.7
[2020-08-11] MEDS ORDERED: ASPIRIN 81 MG CHEWABLE TABLETS PO ONE (11:15)
[2020-08-11] MEDS ORDERED: FAMOTIDINE 20 MG TABLET PO ONE (11:15)
[2020-08-11] MEDS ORDERED: ASPIRIN 81 MG CHEWABLE TABLETS ONE (11:41)
[2020-08-11] MEDS ORDERED: FAMOTIDINE 20 MG TABLET ONE (11:41)
[2020-08-11 11:55] LABS: BASO % 0.5 % (0-2.0); EOS % 1.5 % (0-4.5); HEMOGLOBIN 11.7 GM/dL (10.7-15.3); MCH 28.9 pg (25.7-33.7); MCHC 33.5 g/dl (32.0-36.0); MEAN CELL VOLUME 86.1 fl (80-96); MEAN PLT VOLUME 9.6 fl (7.5-11.1); MONO % 7.3 % (3.8-10.2); NEUT % 53.7 % (42.8-82.8); PLATELET COUNT 208 K/MM3 (134-434); RBC 4.07 M/mm3 (3.60-5.2); RDW 13.1 % (11.6-15.6); WHITE BLOOD COUNT 7.7 K/mm3 (4.0-10.0)
[2020-08-11 12:02] LABS: PROTHROMBIN TIME (PATIENT) 12.3 SEC (9.7-13.0)
[2020-08-11 12:17] LABS: CALCIUM 9.5 mg/dL (8.5-10.1)
[2020-08-11 12:19] LABS: BLOOD UREA NITROGEN 17.6 mg/dL (7-18)
[2020-08-11 12:23] LABS: CREATININE 0.7 mg/dL (0.55-1.3)
[2020-08-11 12:24] LABS: BILIRUBIN,TOTAL 0.7 mg/dL (0.2-1); TOT PROT 7.6 g/dl (6.4-8.2)
[2020-08-11] MEDS: INSULIN SLIDING SCALE (NOVOLOG) 1 VIAL SQ SCH ×2 (16:09→21:54)
[2020-08-11] MEDS: prednisoLONE ACETATE 1% OPHTH SUSP 5 ML BOTTLE OD SCH (18:36)
[2020-08-11] MEDS ORDERED: INSULIN (LEVEMIR) 100 UNITS/ML UNITS SQ ONE (21:49)
[2020-08-11] MEDS: INSULIN (LEVEMIR) 100 UNITS/ML UNITS SQ SCH (21:53)
[2020-08-12] MEDS ORDERED: PANTOPRAZOLE 40 MG TABLET PO ONE (01:53)
[2020-08-12] MEDS ORDERED: IBUPROFEN 600 MG TABLET (FP) PO ONE (01:53)
[2020-08-12 06:11] LABS: BASO % 0.5 % (0-2.0); EOS % 1.7 % (0-4.5); HEMATOCRIT 34.2 % (32.4-45.2); HEMOGLOBIN 11.5 GM/dL (10.7-15.3); LYMPH % 48.5 % (8-40); MCH 28.8 pg (25.7-33.7); MCHC 33.7 g/dl (32.0-36.0); MEAN CELL VOLUME 85.6 fl (80-96); MEAN PLT VOLUME 9.3 fl (7.5-11.1); MONO % 8.2 % (3.8-10.2); NEUT % 41.1 % (42.8-82.8); PLATELET COUNT 188 K/MM3 (134-434); RDW 13.3 % (11.6-15.6); WHITE BLOOD COUNT 8.6 K/mm3 (4.0-10.0)
[2020-08-12 06:31] LABS: ALBUMIN 3.7 g/dl (3.4-5.0); BLOOD UREA NITROGEN 16.8 mg/dL (7-18)
[2020-08-12 06:34] LABS: CREATININE 0.7 mg/dL (0.55-1.3)
[2020-08-12 06:35] LABS: PHOSPHOROUS 5.7 mg/dL (2.5-4.9)
[2020-08-12 06:36] LABS: BILIRUBIN,TOTAL 0.3 mg/dL (0.2-1); TOT PROT 6.8 g/dl (6.4-8.2)
[2020-08-12 06:37] LABS: INR 1.03 (0.83-1.09); PROTHROMBIN TIME (PATIENT) 12.7 SEC (9.7-13.0)
[2020-08-12 06:39] LABS: ACTIVATED PTT 28.6 SECONDS (25.2-36.5)
[2020-08-12] MEDS: INSULIN SLIDING SCALE (NOVOLOG) 1 VIAL SQ SCH ×2 (08:06→13:31)
[2020-08-12] MEDS ORDERED: INSULIN (LEVEMIR) 100 UNITS/ML UNITS SQ ONE (08:30)
[2020-08-12] MEDS: INSULIN (LEVEMIR) 100 UNITS/ML UNITS SQ SCH (08:38)
[2020-08-12] MEDS ORDERED: ARIPiprazole 15 MG TABLET PO SCH (10:00)
[2020-08-12] MEDS ORDERED: GABAPENTIN 100 MG CAPSULE PO SCH (10:00)
[2020-08-12] MEDS ORDERED: ASPIRIN 81 MG CHEWABLE TABLETS PO SCH (10:00)
[2020-08-12] MEDS ORDERED: LISINOPRIL 10 MG TABLET PO SCH (10:00)
[2020-08-12] MEDS ORDERED: ASPIRIN 81 MG CHEWABLE TABLETS ONE (10:10)
[2020-08-12 10:11] VITALS: TEMP 98.5
[2020-08-12] MEDS ORDERED: GABAPENTIN 100 MG CAPSULE ONE (10:11)
[2020-08-12] MEDS: prednisoLONE ACETATE 1% OPHTH SUSP 5 ML BOTTLE OD SCH (10:13)
[2020-08-12 15:43] VITALS: BP 130/72; PULSE 68
[2020-08-12] MEDS ORDERED: ATORVASTATIN CA 40 MG TABLET (FP) PO SCH (22:00)
== END 2020-08-12 15:45 | disposition home or self-care (01) ==
LOC: JER 10:28 → JERBED 13:30
PROVIDERS: ADMIT Internal Medicine; ATTEND Internal Medicine
PROC: 3E013VG Introduction of Insulin into Subcutaneous Tissue, Percutaneous Approach (ICD-10-PCS; principal; 2020-08-11)
DX: R79.89 Other specified abnormal findings of blood chemistry (principal); I10 Essential (primary) hypertension; E78.5 Hyperlipidemia, unspecified; E11.9 Type 2 diabetes mellitus without complications; F32.9 Major depressive disorder, single episode, unspecified; H54.7 Unspecified visual loss; Z87.891 Personal history of nicotine dependence; Z79.4 Long term (current) use of insulin; Z29.9 Encounter for prophylactic measures, unspecified
CPT/HCPCS: 36415; 71045-TC-FY; 80053; 80061; 82962; 83036; 83721; 84100; 84484; 85025; 85610; 85730; 93005; 93010; 93306-TC; 96372; 99285-25; C9803; G0378; U0003